=== PATIENT | male | born 1990 | race African-American/Black ===

== ENCOUNTER 2017-04-13 21:28 | Outpatient (CLI) | payer MEDICAID ==
[2017-04-13 19:26] LABS: CALCIUM 9.7 mg/dL (8.5-10.3); CREATININE 1.5 mg/dL (0.6-1.2); POTASSIUM 3.4 mmol/L (3.5-5.0)
== END 2017-04-13 21:29 | disposition home or self-care (01) ==
LOC: LAB.N 21:28
PROVIDERS: ATTEND Internal Medicine Cardiovascular Disease
DX: I42.8 Other cardiomyopathies (principal)
CPT/HCPCS: 36415; 80048; 83880

== ENCOUNTER 2017-05-29 13:43 | Emergency (ER) | payer MEDICAID ==
[2017-05-29] MEDS ORDERED: FUROSEMIDE 20 MG/2 ML VIAL IVP STA (14:37)
[2017-05-29] MEDS ORDERED: ONDANSETRON 4 MG/2 ML VIAL IVP STA ×2 (14:38→15:55)
--- NOTE | 2017-05-29 14:38 | ED Physician Documentation ---
PD HPI DYSPNEA - Stated complaint Stated Complaint: NAUSEA/SOA - Chief complaint Chief Complaint: General - History obtained from History obtained from: Patient - History of Present Illness Timing - onset: Today, Last night Timing - onset during: Rest Timing - duration: Days (1) Timing - details: Abrupt onset (onset of dyspnea, orthopnea, and nausea/ vomiting last night continuing into today. Has had similar with CHF in the past. No diarrhea. No recent URI.), Still present Inciting event(s): No: URI, Immobilization/travel Improved by: Sitting up Worsened by: Exertion, Laying flat Associated symptoms: Bilateral edema (mild at times). No: Fever, Cough, Hemoptysis, Wheezing, Chest pain / discomfort Similar symptoms before: Diagnosis (CHF related to cardiomyopathy.) Recently seen: Not recently seen Review of Systems Constitutional: denies: Fever, Chills Nose: denies: Rhinorrhea / runny nose, Congestion Throat: denies: Sore throat Cardiac: reports: Pedal edema (mild intermittent). denies: Chest pain / pressure, Palpitations, Calf pain Respiratory: denies: Cough GI: reports: Nausea, Vomiting (today, several times). denies: Abdominal Pain, Diarrhea, Bloody / black stool : denies: Dysuria, Frequency Skin: denies: Rash, Lesions Neurologic: reports: Generalized weakness. denies: Focal weakness, Numbness, Near syncope Endocrine: denies: Weight loss, Easy bruising / bleeding Immunocompromised: denies: Immunocompromised PD PAST MEDICAL HISTORY - Past Medical History Cardiovascular: Hypertension, Atrial flutter, Atrial fibrillation, Arrhythmia Respiratory: None Endocrine/Autoimmune: None GI: None : None HEENT: None Musculoskeletal: None Derm: None - Past Surgical History Past Surgical History: Yes Cardiovascular: Pacemaker - Present Medications Home Medications: Ambulatory Orders Medication Instructions Recorded Confirmed Carvedilol 25 mg PO BID 11/29/13 05/29/17 Digoxin 125 mcg PO DAILY 11/29/13 05/29/17 Hydralazine HCl 40 mg PO TID 11/29/13 05/29/17 Isosorbide Dinitrate 20 mg PO TID 11/29/13 05/29/17 Furosemide [Lasix] 20 mg PO DAILY #20 tablet 09/21/15 05/29/17 Promethazine [Phenergan] 25 - 50 mg PO Q6H PRN #10 tab 09/21/15 05/29/17 Rivaroxaban [Xarelto] 5 mg PO DAILY 09/21/15 05/29/17 - Allergies Allergies/Adverse Reactions: Allergies Allergy/AdvReac Type Severity Reaction Status Date / Time No Known Drug Allergies Allergy Verified 11/29/13 13:32 - Social History Does the pt smoke?: No Smoking Status: Never smoker Does the pt drink ETOH?: No Does the pt have substance abuse?: No - Immunizations Immunizations are current?: Yes - POLST Patient has POLST: No PD ED PE NORMAL - Vitals Vital signs reviewed: Yes - General General: Alert and oriented X 3, Well developed/nourished, Other (has some work of breathing on initial assessment. ) - HEENT HEENT: Ears normal, Moist mucous membranes, Pharynx benign - Neck Neck: Supple, no meningeal sign, No adenopathy, No bruit, Other (JVD noted at 45 degrees head of bed. ) - Cardiac Cardiac: RRR, No murmur - Respiratory Respiratory: Other (some fine crackles at bases; no coarse sounds, no wheezes. ) - Abdomen Abdomen: Normal bowel sounds, Soft, Non tender, Non distended - Back Back: No CVA TTP - Derm Derm: Normal color, No rash - Extremities Extremities: No deformity, No tenderness to palpate, Normal ROM s pain, No edema , No calf tenderness / cord - Neuro Neuro: Alert and oriented X 3, No motor deficit, Normal speech Results - Vitals Vitals: Vital Signs - 24 hr 05/29/17 05/29/17 05/29/17 13:55 14:51 16:15 Temperature 35.9 C L Heart Rate 98 93 83 Respiratory 20 16 11 L Rate Blood Pressure 102/69 97/69 106/69 O2 Saturation 99 97 87 L 05/29/17 05/29/17 05/29/17 16:55 17:43 18:00 Temperature Heart Rate 93 81 86 Respiratory 18 16 15 Rate Blood Pressure 118/79 110/78 109/68 O2 Saturation 97 97 98 05/29/17 05/29/17 18:55 19:48 Temperature Heart Rate 82 82 Respiratory 16 Rate Blood Pressure 121/71 112/79 O2 Saturation 98 98 Oxygen O2 Source Room air - Labs Labs: Laboratory Tests 05/29/17 05/29/17 05/29/17 14:25 14:25 14:25 WBC 4.9 RBC 4.73 Hgb 13.1 L Hct 40.1 L MCV 84.8 MCH 27.8 MCHC 32.8 RDW 15.0 Plt Count 235 MPV 7.8 Neut # 3.5 Lymph # 1.2 L [place] # 0.2 Eos # 0.0 Baso # 0.0 Absolute Nucleated RBC 0.00 Nucleated RBCs 0.0 Manual Slide Review Indicated Platelet Estimate NORMAL (130-450,000) Platelet Morphology 1+ LARGE PLATELETS RBC Morph Micro Appear NORMAL APPEARANCE Sodium 136 Potassium 4.3 Chloride 101 Carbon Dioxide 26 Anion Gap 9.0 BUN 28 H Creatinine 1.7 H Estimated GFR (MDRD) 60 L Glucose 96 Calcium 9.8 Magnesium 2.2 Total Bilirubin 1.2 H AST 36 ALT 38 Alkaline Phosphatase 39 L Troponin I < 0.04 B-Natriuretic Peptide Total Protein 7.4 Albumin 4.5 Globulin 2.9 Albumin/Globulin Ratio 1.6 Lipase 23 Last Dose Date Last Dose Time Digoxin 05/29/17 05/29/17 14:25 14:25 WBC RBC Hgb Hct MCV MCH MCHC RDW Plt Count MPV Neut # Lymph # [place] # Eos # Baso # Absolute Nucleated RBC Nucleated RBCs Manual Slide Review Platelet Estimate Platelet Morphology RBC Morph Micro Appear Sodium Potassium Chloride Carbon Dioxide Anion Gap BUN Creatinine Estimated GFR (MDRD) Glucose Calcium Magnesium Total Bilirubin AST ALT Alkaline Phosphatase Troponin I B-Natriuretic Peptide 3483 H Total Protein Albumin Globulin Albumin/Globulin Ratio Lipase Last Dose Date UNK Last Dose Time UNK Digoxin 0.5 PD MEDICAL DECISION MAKING - ED course Complexity details: re-evaluated patient (He did diurese moderately here and is breathing much more comofrtably. His BP is normal to low so did not give nitrates. ), considered differential, d/w patient, d/w wound care center consultant (Cardiology at - he is followed closely there, and though he does not present as fluid overload per se, he still needs diuresis, and also they would want to do ECHO to assess heart function/etc. They would like him transferred to Cardiology. The nausea and vomiting are common signs of CHF/ischemia in younger cardiomyapathy patients. ) Departure - Departure Disposition: 02 Transfer Acute Care Hosp Clinical Impression: Congestive heart failure Qualifiers: Congestive heart failure type: combined Congestive heart failure chronicity: acute on chronic Qualified Code(s): I50.43 - Acute on chronic combined systolic (congestive) and diastolic (congestive) heart failure Cardiomyopathy Qualifiers: Cardiomyopathy type: unspecified Qualified Code(s): I42.9 - Cardiomyopathy, unspecified Dyspnea Qualifiers: Dyspnea type: shortness of breath Qualified Code(s): R06.02 - Shortness of breath Condition: Stable Record reviewed to determine appropriate education?: Yes Discharge Date/Time: 05/29/17 20:00
[2017-05-29] MEDS ORDERED: ONDANSETRON 4 MG/2 ML VIAL ONE ×2 (14:45→16:04)
[2017-05-29] MEDS ORDERED: FUROSEMIDE 20 MG/2 ML VIAL IVP ONE (14:45)
[2017-05-29] MEDS ORDERED: SODIUM CHLORIDE FLUSH 0.9% 10 ML SYRINGE IVP ONE ×2 (14:46→16:55)
[2017-05-29 14:51] LABS: BASOPHILS % (AUTO) 0.3 %; EOSINOPHILS % (AUTO) 0.3 %; HCT - HEMATOCRIT 40.1 % (42.0-52.0); HGB - HEMOGLOBIN 13.1 g/dL (14.0-18.0); LYMPHOCYTES # (AUTO) 1.2 10^3/uL (1.5-3.5); LYMPHOCYTES % (AUTO) 23.7 %; MEAN CORPUSCULAR HEMOGLOBIN 27.8 pg (27.0-31.0); MEAN CORPUSCULAR HGB CONC 32.8 g/dL (32.0-36.0); MEAN CORPUSCULAR VOLUME 84.8 fL (80.0-94.0); MEAN PLATELET VOLUME 7.8 fL (7.4-11.4); MONOCYTES # (AUTO) 0.2 10^3/uL (0.0-1.0); MONOCYTES % (AUTO) 4.7 %; NEUTROPHILS # (AUTO) 3.5 10^3/uL (1.5-6.6); RED BLOOD COUNT 4.73 10^6/uL (4.70-6.10); UNCORRECTED WHITE BLOOD COUNT 4.9 x10^3/uL; WHITE BLOOD COUNT 4.9 x10^3/uL (4.8-10.8)
[2017-05-29 15:00] LABS: ALBUMIN/GLOBULIN RATIO 1.6 (1.0-2.2); BILIRUBIN,TOTAL 1.2 mg/dL (0.2-1.0); CALCIUM 9.8 mg/dL (8.5-10.3); CREATININE 1.7 mg/dL (0.6-1.2); MAGNESIUM 2.2 mg/dL (1.7-2.8); POTASSIUM 4.3 mmol/L (3.5-5.0); TOTAL PROTEIN 7.4 g/dL (6.7-8.2)
[2017-05-29 15:09] LABS: PLATELET ESTIMATE, MANUAL NORMAL (130-450,000) (NORMAL); PLATELET MORPHOLOGY 1+ LARGE PLATELETS (NORMAL)
--- NOTE | 2017-05-29 15:16 | XRAY Preliminary Report ---
Exam: XR Chest 1 View IMPRESSION: 1. Cardiomegaly without pulmonary edema or focal pneumonia. [facility] SITE ID: [id number]
--- NOTE | 2017-05-29 15:19 | XRAY Report ---
EXAM: CHEST RADIOGRAPHY EXAM DATE: 05/29/2017 02:59 PM. CLINICAL HISTORY: Dyspnea; h/o CHF. COMPARISON: 09/21/2015. TECHNIQUE: 1 view. FINDINGS: Lungs/Pleura: No pulmonary edema or pneumonia. Lung volumes appear normal and symmetric. Negative for pneumothorax. Mediastinum: There is cardiomegaly. There is a defibrillator lead overlying the chest and heart. Other: None. IMPRESSION: 1. Cardiomegaly without pulmonary edema or focal pneumonia. [facility] Referring Provider Line: [phone] SITE ID: [id number]
[2017-05-29] MEDS ORDERED: FUROSEMIDE 40 MG/4 ML VIAL IVP STA (16:40)
[2017-05-29] MEDS ORDERED: FUROSEMIDE 40 MG/4 ML VIAL ONE (16:53)
[2017-05-29 19:52] VITALS: BP 112/79
== END 2017-05-29 20:00 | disposition short-term general hospital (02) ==
LOC: ED 13:43
DX: I50.43 Acute on chronic combined systolic (congestive) and diastolic (congestive) heart failure (principal); I42.9 Cardiomyopathy, unspecified; I10 Essential (primary) hypertension; Z95.0 Presence of cardiac pacemaker
CPT/HCPCS: 36415; 71010; 80053; 80162; 83690; 83735; 83880; 84484; 85025; 93005; 96374; 96375; 96376; 99285

== ENCOUNTER 2017-05-29 19:57 | Outpatient (CLI) | payer MEDICAID | END 2017-05-29 19:58 | disposition short-term general hospital (02) | LOC: EMS 19:57 | PROVIDERS: ATTEND Surgery | DX: I50.9 Heart failure, unspecified (principal); I42.9 Cardiomyopathy, unspecified | CPT/HCPCS: A0425; A0426 ==

== ENCOUNTER 2017-06-02 08:40 | Outpatient (CLI) | payer MEDICAID | END 2017-06-02 08:41 | disposition critical access hospital (66) | LOC: EMS 08:40 | PROVIDERS: ATTEND Surgery | DX: R10.9 Unspecified abdominal pain (principal) | CPT/HCPCS: A0425; A0427 ==

== ENCOUNTER 2017-06-02 08:58 | Emergency (ER) | payer MEDICAID ==
[2017-06-02] MEDS ORDERED: SODIUM CHLORIDE FLUSH 0.9% 10 ML SYRINGE IVP ONE (09:12)
[2017-06-02] MEDS ORDERED: MORPHINE 2 MG/ML CARPUJECT IVP STA (09:18)
[2017-06-02] MEDS ORDERED: ONDANSETRON 4 MG/2 ML VIAL IVP STA (09:18)
--- NOTE | 2017-06-02 09:21 | ED Physician Documentation ---
History of Present Illness - Stated complaint Stated Complaint: ABD PX NAUSEA - Chief complaint Chief Complaint: General - Additonal information Additional information: 26 male congential cardiomyopathy has AICD, EF 20%, followed and [facility] to ER with upper abd pain NV no fever no diarrhea no urinary sx no chest or back pain worse with walking no affected by eating no prior abd surgery seen in our ER for same and transferred to [facility] for cardiac work up which pt states was fine and he was given diuretics now pain is back so sent back to the ER again Review of Systems Constitutional: denies: Fever, Chills Cardiac: denies: Chest pain / pressure Respiratory: denies: Dyspnea, Cough GI: reports: Abdominal Pain, Nausea, Vomiting. denies: Diarrhea, Bloody / black stool : denies: Dysuria Musculoskeletal: denies: Neck pain, Back pain Endocrine: reports: Easy bruising / bleeding (xarelto) Immunocompromised: denies: Immunocompromised PD PAST MEDICAL HISTORY - Past Medical History Cardiovascular: Congestive heart failure, Hypertension, Atrial flutter, Atrial fibrillation, Arrhythmia Respiratory: None Endocrine/Autoimmune: None GI: None : None HEENT: None Musculoskeletal: None Derm: None - Past Surgical History Past Surgical History: Yes Cardiovascular: Pacemaker, AICD - Present Medications Home Medications: Ambulatory Orders Medication Instructions Recorded Confirmed Carvedilol 25 mg PO BID 11/29/13 06/02/17 Digoxin 125 mcg PO DAILY 11/29/13 06/02/17 Hydralazine HCl 40 mg PO TID 11/29/13 06/02/17 Isosorbide Dinitrate 20 mg PO TID 11/29/13 06/02/17 Furosemide [Lasix] 20 mg PO DAILY #20 tablet 09/21/15 05/29/17 Rivaroxaban [Xarelto] 5 mg PO DAILY 09/21/15 06/02/17 Sacubitril/Valsartan [Entresto 49 06/02/17 mg-51 mg Tablet] - Allergies Allergies/Adverse Reactions: Allergies Allergy/AdvReac Type Severity Reaction Status Date / Time No Known Drug Allergies Allergy Verified 11/29/13 13:32 - Social History Does the pt smoke?: No Smoking Status: Never smoker Does the pt drink ETOH?: No Does the pt have substance abuse?: No - Immunizations Immunizations are current?: Yes - POLST Patient has POLST: No PD ED PE NORMAL - Vitals Vital signs reviewed: Yes - General General: Alert and oriented X 3 - HEENT HEENT: PERRL - Neck Neck: Supple, no meningeal sign - Cardiac Cardiac: RRR - Respiratory Respiratory: No respiratory distress, Clear bilaterally - Abdomen Abdomen: Normal bowel sounds, Soft, Other (marked TTP upper abd epigastric and RUQ > LUQ, some vol guarding, no pulsatile mass, no lower abd TTP) - Male Male : Deferred (denies scrotal pain or swelling) - Derm Derm: Normal color - Extremities Extremities: No deformity, No tenderness to palpate, No edema - Neuro Neuro: Alert and oriented X 3 Results - Vitals Vitals: Vital Signs - 24 hr 06/02/17 06/02/17 06/02/17 09:02 11:45 12:20 Temperature 36.5 C 36.7 C Heart Rate 102 H 93 97 Respiratory 14 18 Rate Blood Pressure 131/90 H 117/72 115/68 O2 Saturation 99 98 97 06/02/17 12:40 Temperature Heart Rate 97 Respiratory 14 Rate Blood Pressure 126/97 H O2 Saturation 86 L Oxygen O2 Source Room air Oxygen Flow Rate 3 - EKG (time done) 0904 Rate: Rate (enter#) Rhythm: NSR Intervals: Prolonged QT Ischemia: T wave inversion (V4-V2 I) Compare to prior EKG: Changed from prior EKG (TWI not new but prolonged QT is) - Labs Labs: Laboratory Tests 06/02/17 06/02/17 06/02/17 09:50 09:50 09:50 WBC 4.2 L RBC 4.29 L Hgb 12.1 L Hct 36.5 L MCV 84.9 MCH 28.2 MCHC 33.2 RDW 15.4 H Plt Count 211 MPV 7.9 Neut # 3.0 Lymph # 1.0 L [place] # 0.2 Eos # 0.0 Baso # 0.0 Absolute Nucleated RBC 0.01 Nucleated RBCs 0.1 Sodium 138 Potassium 4.5 Chloride 106 Carbon Dioxide 24 Anion Gap 8.0 BUN 27 H Creatinine 1.5 H Estimated GFR (MDRD) 70 L Glucose 117 H Calcium 9.6 Total Bilirubin 0.9 AST 45 H ALT 47 Alkaline Phosphatase 35 L Troponin I < 0.04 Total Protein 7.0 Albumin 4.0 Globulin 3.0 Albumin/Globulin Ratio 1.3 Lipase 19 L Last Dose Date Last Dose Time Digoxin 06/02/17 09:50 WBC RBC Hgb Hct MCV MCH MCHC RDW Plt Count MPV Neut # Lymph # [place] # Eos # Baso # Absolute Nucleated RBC Nucleated RBCs Sodium Potassium Chloride Carbon Dioxide Anion Gap BUN Creatinine Estimated GFR (MDRD) Glucose Calcium Total Bilirubin AST ALT Alkaline Phosphatase Troponin I Total Protein Albumin Globulin Albumin/Globulin Ratio Lipase Last Dose Date 06/02/2017 Last Dose Time UNK Digoxin 0.3 - Rads (name of study) GB sono Radiology: See rad report (acute slava, nl CBD) PD MEDICAL DECISION MAKING - ED course ED course: renal insuff is not new new prolonged QT - avoided acute slava, gave zosyn, given underlying cardiomyopathy and EF 20% not able to have surgery at [facility], will call [facility] to transfer, Dr Villarreal accepts, waiting for a bed at [facility] Departure - Departure Disposition: 02 Transfer Acute Care Hosp Clinical Impression: Acute cholecystitis, Prolonged QT interval Cardiomyopathy Qualifiers: Cardiomyopathy type: unspecified Qualified Code(s): I42.9 - Cardiomyopathy, unspecified Condition: Fair
[2017-06-02] MEDS ORDERED: PROMETHAZINE INJ 12.5 MG in SODIUM CHLORIDE 0.9% 50 ML IV STA (09:38)
[2017-06-02] MEDS ORDERED: PROMETHAZINE 25 MG/1 ML VIAL ONE (09:42)
[2017-06-02] MEDS ORDERED: MORPHINE 2 MG/ML CARPUJECT ONE (09:42)
[2017-06-02 10:03] LABS: BASOPHILS % (AUTO) 0.6 %; EOSINOPHILS % (AUTO) 0.4 %; HCT - HEMATOCRIT 36.5 % (42.0-52.0); HGB - HEMOGLOBIN 12.1 g/dL (14.0-18.0); MEAN CORPUSCULAR HEMOGLOBIN 28.2 pg (27.0-31.0); MEAN CORPUSCULAR HGB CONC 33.2 g/dL (32.0-36.0); MEAN CORPUSCULAR VOLUME 84.9 fL (80.0-94.0); MEAN PLATELET VOLUME 7.9 fL (7.4-11.4); MONOCYTES # (AUTO) 0.2 10^3/uL (0.0-1.0); MONOCYTES % (AUTO) 5.1 %; NEUTROPHILS % (AUTO) 70.9 %; NUCLEATED RED BLOOD CELLS AUTO 0.1 /100WBC; RED BLOOD COUNT 4.29 10^6/uL (4.70-6.10); RED CELL DISTRIBUTION WIDTH 15.4 % (12.0-15.0); UNCORRECTED WHITE BLOOD COUNT 4.2 x10^3/uL; WHITE BLOOD COUNT 4.2 x10^3/uL (4.8-10.8)
[2017-06-02 10:20] LABS: POTASSIUM 4.5 mmol/L (3.5-5.0)
[2017-06-02 10:21] LABS: ALBUMIN/GLOBULIN RATIO 1.3 (1.0-2.2); BILIRUBIN,TOTAL 0.9 mg/dL (0.2-1.0); CALCIUM 9.6 mg/dL (8.5-10.3); CREATININE 1.5 mg/dL (0.6-1.2)
--- NOTE | 2017-06-02 11:34 | Ultrasound Report ---
RIGHT UPPER QUADRANT ULTRASOUND: 06/02/2017 CLINICAL INDICATION: Pain. TECHNIQUE: Real-time scanning was performed with provider relations representative static images obtained. FINDINGS: The liver measures 19.1 cm. Hepatic echotexture is normal. No intrahepatic biliary dilat ation is seen. The common bile duct measures 5 mm. The gallbladder demonstrates wall thickening and wall edema, with a calculus of the neck, compatible with acute calculus cholecystitis. The right ki dney measures 9.2 cm, and demonstrates no hydronephrosis. The abdominal aorta is normal in caliber. IMPRESSION: ACUTE CALCULUS CHOLECYSTITIS. NO EVIDENCE OF BILIARY OBSTRUCTION. JOB #: [id number] EXT JOB #:[id number]
[2017-06-02] MEDS ORDERED: PIPERACILLIN/TAZOBACTAM 3.375 GM in SODIUM CHLORIDE 0.9% MINIBAG 100 ML IV STA (11:42)
[2017-06-02] MEDS ORDERED: HYDROmorphone 1 MG/ML SYRINGE IVP STA (12:12)
[2017-06-02] MEDS ORDERED: HYDROmorphone 1 MG/ML SYRINGE ONE (12:17)
[2017-06-02] MEDS ORDERED: hydrALAZINE 10 MG TABLET PO STA (15:48)
[2017-06-02] MEDS ORDERED: hydrALAZINE 10 MG TABLET ONE (16:50)
[2017-06-02 17:15] VITALS: BP 108/86
== END 2017-06-02 17:10 | disposition short-term general hospital (02) ==
LOC: EDUNIT# → ED 08:58
DX: K81.9 Cholecystitis, unspecified (principal); I45.81 Long QT syndrome; I42.9 Cardiomyopathy, unspecified; I10 Essential (primary) hypertension
CPT/HCPCS: 36415; 76705; 80053; 80162; 83690; 84484; 85025; 93005; 96365; 96375; 99284; 99285; J1170; J7040

== ENCOUNTER 2017-07-02 13:16 | Outpatient (CLI) | payer MEDICAID ==
[2017-07-02 19:46] LABS: CALCIUM 9.8 mg/dL (8.5-10.3); CREATININE 1.3 mg/dL (0.6-1.2); POTASSIUM 4.3 mmol/L (3.5-5.0)
== END 2017-07-02 13:17 | disposition home or self-care (01) ==
LOC: LAB.N 13:16
PROVIDERS: ATTEND Internal Medicine Cardiovascular Disease
DX: I42.8 Other cardiomyopathies (principal)
CPT/HCPCS: 36415; 80048; 83880

== ENCOUNTER → 2017-07-27 | Outpatient (CLI) | payer MEDICAID ==
[2017-07-29 07:56] LABS: B. PARAPERTUSSIS DNA NOT DETECTED; B. PERTUSSIS DNA NOT DETECTED
== END ==
LOC: LAB.R 08:00
PROVIDERS: ATTEND Nurse Practitioner Gerontology
DX: R05 Cough (principal)
CPT/HCPCS: 87801

== ENCOUNTER 2017-12-28 08:00 | Outpatient (CLI) | payer MEDICAID ==
[2017-12-28 19:00] LABS: PT - PROTHROMBIN TIME 47.5 secs (9.9-12.6)
[2017-12-28 19:06] LABS: INR 4.5 (0.8-1.2)
== END 2017-12-28 08:01 | disposition home or self-care (01) ==
LOC: LAB.N 08:00
PROVIDERS: ATTEND Pharmacist Pharmacotherapy
DX: Z79.01 Long term (current) use of anticoagulants (principal)
CPT/HCPCS: 36415; 85610

== ENCOUNTER 2018-01-01 08:00 | Outpatient (CLI) | payer MEDICAID ==
[2018-01-01 18:34] LABS: INR 3.4 (0.8-1.2); PT - PROTHROMBIN TIME 36.8 secs (9.9-12.6)
== END 2018-01-01 08:01 | disposition home or self-care (01) ==
LOC: LAB.N 08:00
PROVIDERS: ATTEND Nurse Practitioner
DX: Z79.01 Long term (current) use of anticoagulants (principal)
CPT/HCPCS: 36415; 85610

== ENCOUNTER 2018-01-04 13:03 | Outpatient (CLI) | payer MEDICAID ==
[2018-01-04 19:26] LABS: INR 3.3 (0.8-1.2); PT - PROTHROMBIN TIME 35.5 secs (9.9-12.6)
== END 2018-01-04 13:04 | disposition home or self-care (01) ==
LOC: LAB.N 13:03
PROVIDERS: ATTEND Nurse Practitioner
DX: Z79.01 Long term (current) use of anticoagulants (principal)
CPT/HCPCS: 36415; 85610

== ENCOUNTER 2018-01-05 06:46 | Outpatient (CLI) | payer MEDICAID | END 2018-01-05 06:47 | disposition EMS.NT | LOC: EMS 06:46 | PROVIDERS: ATTEND Surgery | DX: R10.9 Unspecified abdominal pain (principal) ==

== ENCOUNTER 2018-01-11 23:49 | Outpatient (CLI) | payer MEDICAID ==
[2018-01-11 19:02] LABS: INR 2.4 (0.8-1.2); PT - PROTHROMBIN TIME 26.5 secs (9.9-12.6)
== END 2018-01-11 23:50 | disposition home or self-care (01) ==
LOC: LAB.N 23:49
PROVIDERS: ATTEND Nurse Practitioner
DX: Z79.01 Long term (current) use of anticoagulants (principal)
CPT/HCPCS: 36415; 85610

== ENCOUNTER 2018-01-22 08:00 | Outpatient (CLI) | payer MEDICAID ==
[2018-01-22 19:08] LABS: INR 3.6 (0.8-1.2); PT - PROTHROMBIN TIME 39.1 secs (9.9-12.6)
== END 2018-01-22 08:01 | disposition home or self-care (01) ==
LOC: LAB.N 08:00
PROVIDERS: ATTEND Nurse Practitioner
DX: Z79.01 Long term (current) use of anticoagulants (principal)
CPT/HCPCS: 36415; 85610

== ENCOUNTER 2018-02-01 08:00 | Outpatient (CLI) | payer MEDICAID ==
[2018-02-01 19:04] LABS: INR 2.9 (0.8-1.2); PT - PROTHROMBIN TIME 31.8 secs (9.9-12.6)
== END 2018-02-01 23:59 ==
LOC: LAB.N 08:00
PROVIDERS: ATTEND Nurse Practitioner
DX: Z79.01 Long term (current) use of anticoagulants (principal)
CPT/HCPCS: 36415; 85610

== ENCOUNTER 2018-02-19 08:00 | Outpatient (CLI) | payer MEDICAID ==
[2018-02-19 19:26] LABS: INR 1.9 (0.8-1.2); PT - PROTHROMBIN TIME 21.1 secs (9.9-12.6)
== END 2018-02-19 08:01 | disposition home or self-care (01) ==
LOC: LAB.N 08:00
PROVIDERS: ATTEND Nurse Practitioner
DX: Z79.01 Long term (current) use of anticoagulants (principal)
CPT/HCPCS: 36415; 85610

== ENCOUNTER 2018-02-22 13:51 | Outpatient (CLI) | payer MEDICAID ==
[2018-02-22 18:36] LABS: INR 2.2 (0.8-1.2); PT - PROTHROMBIN TIME 23.8 secs (9.9-12.6)
== END 2018-02-22 13:52 | disposition home or self-care (01) ==
LOC: LAB.N 13:51
PROVIDERS: ATTEND Nurse Practitioner
DX: Z79.01 Long term (current) use of anticoagulants (principal)
CPT/HCPCS: 36415; 85610

== ENCOUNTER 2018-02-26 14:02 | Outpatient (CLI) | payer MEDICAID ==
[2018-02-26 18:57] LABS: INR 2.5 (0.8-1.2); PT - PROTHROMBIN TIME 27.2 secs (9.9-12.6)
== END 2018-02-26 14:03 | disposition home or self-care (01) ==
LOC: LAB.N 14:02
PROVIDERS: ATTEND Nurse Practitioner
DX: Z79.01 Long term (current) use of anticoagulants (principal)
CPT/HCPCS: 36415; 85610

== ENCOUNTER 2018-03-15 13:56 | Outpatient (CLI) | payer MEDICAID ==
[2018-03-15 19:09] LABS: INR 3.9 (0.8-1.2); PT - PROTHROMBIN TIME 42.3 secs (9.9-12.6)
== END 2018-03-15 13:57 | disposition home or self-care (01) ==
LOC: LAB.N 13:56
PROVIDERS: ATTEND Nurse Practitioner
DX: Z79.01 Long term (current) use of anticoagulants (principal)
CPT/HCPCS: 36415; 85610

== ENCOUNTER 2018-03-22 14:07 | Outpatient (CLI) | payer MEDICAID ==
[2018-03-22 19:21] LABS: INR 2.5 (0.8-1.2); PT - PROTHROMBIN TIME 27.2 secs (9.9-12.6)
== END 2018-03-22 14:08 | disposition home or self-care (01) ==
LOC: LAB.N 14:07
PROVIDERS: ATTEND Nurse Practitioner
DX: Z79.01 Long term (current) use of anticoagulants (principal)
CPT/HCPCS: 36415; 85610

== ENCOUNTER 2018-04-02 14:41 | Outpatient (CLI) | payer MEDICAID ==
[2018-04-02 19:24] LABS: INR 2.6 (0.8-1.2); PT - PROTHROMBIN TIME 28.1 secs (9.9-12.6)
== END 2018-04-02 14:42 | disposition home or self-care (01) ==
LOC: LAB.N 14:41
PROVIDERS: ATTEND Nurse Practitioner
DX: Z79.01 Long term (current) use of anticoagulants (principal)
CPT/HCPCS: 36415; 85610

== ENCOUNTER 2018-04-13 14:30 | Outpatient (CLI) | payer MEDICAID ==
[2018-04-13 19:03] LABS: INR 2.4 (0.8-1.2); PT - PROTHROMBIN TIME 26.7 secs (9.9-12.6)
== END 2018-04-13 14:31 | disposition home or self-care (01) ==
LOC: LAB.N 14:30
PROVIDERS: ATTEND Nurse Practitioner
DX: Z79.01 Long term (current) use of anticoagulants (principal)
CPT/HCPCS: 36415; 85610

== ENCOUNTER 2018-05-10 14:22 | Outpatient (CLI) | payer MEDICAID ==
[2018-05-10 19:23] LABS: INR 2.4 (0.8-1.2); PT - PROTHROMBIN TIME 26.7 secs (9.9-12.6)
== END 2018-05-10 14:23 | disposition home or self-care (01) ==
LOC: LAB.N 14:22
PROVIDERS: ATTEND Nurse Practitioner
DX: Z79.01 Long term (current) use of anticoagulants (principal)
CPT/HCPCS: 36415; 85610

== ENCOUNTER 2018-05-26 14:19 | Outpatient (CLI) | payer MEDICAID ==
[2018-05-26 18:52] LABS: PT - PROTHROMBIN TIME 32.7 secs (9.9-12.6)
== END 2018-05-26 14:20 | disposition home or self-care (01) ==
LOC: LAB.N 14:19
PROVIDERS: ATTEND Nurse Practitioner
DX: Z79.01 Long term (current) use of anticoagulants (principal)
CPT/HCPCS: 36415; 85610

== ENCOUNTER 2018-07-21 13:42 | Outpatient (CLI) | payer MEDICAID ==
[2018-07-21 14:05] LABS: CALCIUM 10.3 mg/dL (8.5-10.3); CREATININE 1.3 mg/dL (0.6-1.2)
== END 2018-07-21 13:43 | disposition home or self-care (01) ==
LOC: LAB 13:42
PROVIDERS: ATTEND Nurse Practitioner Adult Health
DX: Z94.1 Heart transplant status (principal)
CPT/HCPCS: 36415; 80048; 80197

== ENCOUNTER 2018-09-17 08:00 | Outpatient (CLI) | payer MEDICAID ==
[2018-09-17 19:18] LABS: BASOPHILS % (AUTO) 0.4 %; EOSINOPHILS % (AUTO) 0.2 %; MEAN CORPUSCULAR HEMOGLOBIN 29.9 pg (27.0-31.0); MEAN CORPUSCULAR VOLUME 90.7 fL (80.0-94.0); MEAN PLATELET VOLUME 8.1 fL (7.4-11.4); MONOCYTES % (AUTO) 6.1 %; NEUTROPHILS % (AUTO) 88.3 %; PLT - PLATELET COUNT 223 10^3/uL (130-450); RED BLOOD COUNT 4.34 10^6/uL (4.70-6.10); RED CELL DISTRIBUTION WIDTH 15.2 % (12.0-15.0); WHITE BLOOD COUNT 4.1 x10^3/uL (4.8-10.8)
[2018-09-17 19:24] LABS: ABNORMAL LYMPHS % (MANUAL) 0 %
[2018-09-17 19:38] LABS: BAND NEUTROPHILS % (MANUAL) 7 %; DIFFERENTIAL COMMENT MANUAL DIFFERENTIAL; LYMPHOCYTES # (MANUAL) 0.3 10^3/uL (1.5-3.5); LYMPHOCYTES % (MANUAL) 7 %; MONOCYTES # (MANUAL) 0.2 10^3/uL (0.0-1.0); NEUTROPHILS # (MANUAL) 3.6 10^3/uL (1.5-6.6); NEUTROPHILS % (MANUAL) 81 %; PLATELET ESTIMATE, MANUAL NORMAL (130-450,000) (NORMAL); PLATELET MORPHOLOGY NORMAL APPEARANCE (NORMAL); RBC MORPHOLOGY (MULTIPLE) 1+ ANISOCYTOSIS (NORMAL)
[2018-09-17 19:44] LABS: ALBUMIN 4.9 g/dL (3.2-5.5); ALBUMIN/GLOBULIN RATIO 1.5 (1.0-2.2); BILIRUBIN,TOTAL 0.5 mg/dL (0.2-1.0); CALCIUM 10.8 mg/dL (8.5-10.3); CREATININE 1.5 mg/dL (0.6-1.2); MAGNESIUM 1.3 mg/dL (1.7-2.8); TOTAL PROTEIN 8.2 g/dL (6.7-8.2)
== END 2018-09-17 23:59 ==
LOC: LAB.N 08:00
PROVIDERS: ATTEND Nurse Practitioner Adult Health
DX: Z94.1 Heart transplant status (principal)
CPT/HCPCS: 36415; 80053; 80197; 83735; 85025

== ENCOUNTER 2018-10-19 20:38 | Outpatient (CLI) | payer MEDICAID | END 2018-10-19 20:39 | disposition critical access hospital (66) | LOC: EMS 20:38 | PROVIDERS: ATTEND Surgery | DX: M25.522 Pain in left elbow (principal); M25.642 Stiffness of left hand, not elsewhere classified; Z94.1 Heart transplant status | CPT/HCPCS: A0425; A0429; A0999 ==

== ENCOUNTER 2018-10-19 20:55 | Emergency (ER) | payer MEDICAID ==
--- NOTE | 2018-10-19 21:20 | ED Physician Documentation ---
History of Present Illness - Stated complaint Stated Complaint: LEFT ELBOW PAIN - Chief complaint Chief Complaint: Ext Problem - History obtained from History obtained from: Patient - History of Present Illness Timing: Today - Additonal information Additional information: 28-year-old male who has had heart transplant done in May of this year has developed acute pain in his left elbow. This started this morning and is similar to what is had previously with acute gout. He is having gout in that left elbow. This evening he is unable to move his arm at all without severe pain. He states that the rest of his constitution is well and he is taking his medications and has not felt ill. Review of Systems Constitutional: denies: Fever, Chills, Myalgias Eyes: denies: Decreased vision Ears: denies: Ear pain Nose: denies: Rhinorrhea / runny nose, Congestion Throat: denies: Sore throat Cardiac: denies: Chest pain / pressure, Palpitations Respiratory: denies: Dyspnea, Cough GI: denies: Abdominal Pain, Nausea, Vomiting, Constipation, Diarrhea : denies: Dysuria Skin: denies: Rash Musculoskeletal: reports: Extremity pain, Joint pain, Joint swelling. denies: Neck pain, Back pain Neurologic: denies: Generalized weakness, Focal weakness, Numbness PD PAST MEDICAL HISTORY - Past Medical History Cardiovascular: Congestive heart failure, Hypertension, Atrial flutter, Atrial fibrillation, Arrhythmia Respiratory: None Endocrine/Autoimmune: None GI: None : None HEENT: None Musculoskeletal: None Derm: None - Past Surgical History Past Surgical History: Yes Cardiovascular: Pacemaker, AICD - Present Medications Home Medications: Ambulatory Orders Medication Instructions Recorded Confirmed Carvedilol 25 mg PO BID 11/29/13 06/02/17 Digoxin 125 mcg PO DAILY 11/29/13 06/02/17 Hydralazine HCl 40 mg PO TID 11/29/13 06/02/17 Isosorbide Dinitrate 20 mg PO TID 11/29/13 06/02/17 Furosemide [Lasix] 20 mg PO DAILY #20 tablet 09/21/15 05/29/17 Rivaroxaban [Xarelto] 5 mg PO DAILY 09/21/15 06/02/17 Sacubitril/Valsartan [Entresto 49 06/02/17 mg-51 mg Tablet] Oxycodone HCl/Acetaminophen 1 - 2 each PO Q6H PRN #14 tablet 10/19/18 [Percocet 5-325 mg Tablet] - Allergies Allergies/Adverse Reactions: Allergies Allergy/AdvReac Type Severity Reaction Status Date / Time No Known Drug Allergies Allergy Verified 10/19/18 21:00 - Social History Does the pt smoke?: No Smoking Status: Never smoker Does the pt drink ETOH?: No Does the pt have substance abuse?: No - Immunizations Immunizations are current?: Yes - POLST Patient has POLST: No PD ED PE NORMAL - Vitals Vital signs reviewed: Yes (tachy and hypertensive ) - General General: Alert and oriented X 3, Well developed/nourished - HEENT HEENT: Atraumatic, PERRL, EOMI - Neck Neck: Supple, no meningeal sign, No bony TTP - Cardiac Cardiac: RRR, No murmur - Respiratory Respiratory: No respiratory distress, Clear bilaterally - Abdomen Abdomen: Soft, Non tender - Back Back: No CVA TTP, No spinal TTP - Derm Derm: Normal color, Warm and dry, No rash - Extremities Extremities: Other (There are multiple scars to the left elbow and there is mild swelling over the olecrenon that is tender and not discolored. Small movements cause signifcant pain consistent with the gout. 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, No motor deficit, No sensory deficit, Normal speech Eye Opening: Spontaneous Motor: Obeys Commands Verbal: Oriented GCS Score: 15 - Psych Psych: Normal mood, Normal affect Results - Vitals Vitals: Vital Signs - 24 hr 10/19/18 10/19/18 20:55 21:34 Temperature 37.1 C Heart Rate 110 H 105 H Respiratory 16 16 Rate Blood Pressure 140/106 H 142/96 H O2 Saturation 99 100 Oxygen O2 Source Room air - Labs Labs: Laboratory Tests 10/19/18 10/19/18 10/19/18 21:24 21:24 21:24 WBC 6.1 RBC 3.69 L Hgb 11.1 L Hct 33.7 L MCV 91.3 MCH 30.1 MCHC 33.0 RDW 14.2 Plt Count 204 MPV 7.2 L Neut # (Auto) 5.0 Lymph # (Auto) 0.[address] [place] # (Auto) 0.7 Eos # (Auto) 0.0 Baso # (Auto) 0.0 Absolute Nucleated RBC 0.00 Nucleated RBC % 0.0 Sodium 136 Potassium 4.1 Chloride 104 Carbon Dioxide 24 Anion Gap 8.0 BUN 35 H Creatinine 1.7 H Estimated GFR (MDRD) 59 L Glucose 221 H Uric Acid Calcium 9.7 Total Bilirubin 0.3 AST 20 ALT 17 Alkaline Phosphatase 44 Troponin I < 0.04 Total Protein 7.8 Albumin 4.6 Globulin 3.2 Albumin/Globulin Ratio 1.4 Lipase 21 L 10/19/18 21:24 WBC RBC Hgb Hct MCV MCH MCHC RDW Plt Count MPV Neut # (Auto) Lymph # (Auto) 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 He has had this previously. Here in the emergency department he is administered dexamethasone 10 mg orally and oxycodone 5 mg orally. He has a history of renal insufficiency and his electrolytes and uric acid are checked. Departure - Departure Disposition: 01 Home, Self Care Clinical Impression: Gout attack Qualifiers: Gout site: elbow Gout etiology: unspecified cause Laterality: left Qualified Code(s): M10.9 - Gout, unspecified Condition: Stable Instructions: Gout Attack Tx, ED Arthritis Gout Follow-Up: Pat Groves ARNP [Primary Care Provider] - Prescriptions: Oxycodone HCl/Acetaminophen [Percocet 5-325 mg Tablet] 1 - 2 each PO Q6H PRN #14 tablet PRN Reason: pain
[2018-10-19] MEDS ORDERED: oxyCODONE 5 MG TABLET PO STA (21:23)
[2018-10-19] MEDS ORDERED: DEXAMETHASONE 10 MG/ML VIAL PO STA (21:23)
[2018-10-19 21:28] LABS: BASOPHILS % (AUTO) 0.6 %; EOSINOPHILS % (AUTO) 0.4 %; HGB - HEMOGLOBIN 11.1 g/dL (14.0-18.0); LYMPHOCYTES # (AUTO) 0.4 10^3/uL (1.5-3.5); LYMPHOCYTES % (AUTO) 6.2 %; MEAN CORPUSCULAR HEMOGLOBIN 30.1 pg (27.0-31.0); MEAN CORPUSCULAR VOLUME 91.3 fL (80.0-94.0); MEAN PLATELET VOLUME 7.2 fL (7.4-11.4); MONOCYTES # (AUTO) 0.7 10^3/uL (0.0-1.0); MONOCYTES % (AUTO) 10.9 %; NEUTROPHILS % (AUTO) 81.9 %; PLT - PLATELET COUNT 204 10^3/uL (130-450); RED BLOOD COUNT 3.69 10^6/uL (4.70-6.10); RED CELL DISTRIBUTION WIDTH 14.2 % (12.0-15.0); WHITE BLOOD COUNT 6.1 x10^3/uL (4.8-10.8)
[2018-10-19] MEDS ORDERED: CHERRY SYRUP 10 ML UDC PO ONE (21:32)
[2018-10-19 21:45] LABS: ALBUMIN 4.6 g/dL (3.2-5.5); ALBUMIN/GLOBULIN RATIO 1.4 (1.0-2.2); BILIRUBIN,TOTAL 0.3 mg/dL (0.2-1.0); CALCIUM 9.7 mg/dL (8.5-10.3); CREATININE 1.7 mg/dL (0.6-1.2); TOTAL PROTEIN 7.8 g/dL (6.7-8.2)
[2018-10-19] MEDS ORDERED: KETOROLAC 60 MG/2 ML VIAL IM STA (22:06)
[2018-10-19] MEDS ORDERED: oxyCODONE/ACET 5/325 Prepack 4 PO STA (22:30)
[2018-10-19 23:01] VITALS: BP 134/87
== END 2018-10-19 23:01 | disposition home or self-care (01) ==
LOC: EDUNIT# → ED 20:55
DX: M10.9 Gout, unspecified (principal); Z95.810 Presence of automatic (implantable) cardiac defibrillator; Z94.1 Heart transplant status; I11.0 Hypertensive heart disease with heart failure; I50.9 Heart failure, unspecified; N28.9 Disorder of kidney and ureter, unspecified
CPT/HCPCS: 36415; 80053; 83690; 84484; 84550; 85025; 96372; 99283; A9270

== ENCOUNTER 2018-11-02 08:00 | Outpatient (CLI) | payer MEDICAID ==
[2018-11-02 20:00] LABS: CREATININE 1.5 mg/dL (0.6-1.2)
== END 2018-11-02 23:59 | disposition home or self-care (01) ==
LOC: LAB.N 08:00
PROVIDERS: ATTEND Internal Medicine Cardiovascular Disease
DX: Z94.1 Heart transplant status (principal)
CPT/HCPCS: 36415; 80048; 80197

== ENCOUNTER 2018-12-06 21:40 | Emergency (ER) | payer MEDICAID ==
[2018-12-06] MEDS ORDERED: SODIUM CHLORIDE 0.9% 1,000 ML IV ONE (21:57)
[2018-12-07 00:40] LABS: ALBUMIN 4.6 g/dL (3.2-5.5); ALBUMIN/GLOBULIN RATIO 1.4 (1.0-2.2); BILIRUBIN,TOTAL 0.9 mg/dL (0.2-1.0); CALCIUM 10.9 mg/dL (8.5-10.3); CREATININE 1.4 mg/dL (0.6-1.2)
[2018-12-07 01:15] LABS: BASOPHILS % (AUTO) 2.4 %; EOSINOPHILS % (AUTO) 0.8 %; HGB - HEMOGLOBIN 12.8 g/dL (14.0-18.0); LYMPHOCYTES % (AUTO) 24.7 %; MEAN CORPUSCULAR HEMOGLOBIN 30.4 pg (27.0-31.0); MEAN CORPUSCULAR HGB CONC 35.7 g/dL (32.0-36.0); MEAN CORPUSCULAR VOLUME 85.2 fL (80.0-94.0); MEAN PLATELET VOLUME 7.9 fL (7.4-11.4); MONOCYTES % (AUTO) 14.2 %; NEUTROPHILS % (AUTO) 57.9 %; PLT - PLATELET COUNT 353 10^3/uL (130-450); RED BLOOD COUNT 4.19 10^6/uL (4.70-6.10); RED CELL DISTRIBUTION WIDTH 13.3 % (12.0-15.0); WHITE BLOOD COUNT 2.1 x10^3/uL (4.8-10.8)
[2018-12-07 01:34] LABS: VBG BASE EXCESS -2.1 mmol/L (-2 - +2); VBG PCO2 45.7 mmHg (41-51); VBG PH 7.336 (7.31-7.41); VBG PO2 41.2 mmHg (25-47); VBG TOTAL CO2 25.3 mmol/L (24-29)
[2018-12-07 01:44] LABS: ABNORMAL LYMPHS % (MANUAL) 0 %; BAND NEUTROPHILS % (MANUAL) 0 %; BASOPHILS % (MANUAL) 1 %; LYMPHOCYTES # (MANUAL) 0.5 10^3/uL (1.5-3.5); LYMPHOCYTES % (MANUAL) 25 %; MONOCYTES # (MANUAL) 0.2 10^3/uL (0.0-1.0); NEUTROPHILS # (MANUAL) 1.3 10^3/uL (1.5-6.6); NEUTROPHILS % (MANUAL) 62 %
[2018-12-07 01:45] LABS: PLATELET ESTIMATE, MANUAL NORMAL (130-450,000) (NORMAL); RBC MORPHOLOGY (MULTIPLE) NORMAL APPEARANCE (NORMAL)
[2018-12-07] MEDS ORDERED: INSULIN REGULAR HUMAN 100 UNIT/1 ML 10 ML MDV ONE (01:47)
[2018-12-07] MEDS ORDERED: INSULIN REGULAR HUMAN 100 UNIT/1 ML 10 ML MDV SUBQ ONE (01:47)
[2018-12-07 02:05] LABS: BILIRUBIN,URINE NEGATIVE (NEGATIVE); GLUCOSE, URINE (UA) >=1000 mg/dL (NEGATIVE); KETONES,URINE (UA) 15 mg/dL (NEGATIVE); LEUKOCYTE ESTERASE, URINE NEGATIVE (NEGATIVE); NITRITE,URINE NEGATIVE (NEGATIVE); OCCULT BLOOD,URINE NEGATIVE (NEGATIVE); PROTEIN,URINE NEGATIVE (NEGATIVE); UROBILINOGEN,URINE 0.2 (NORMAL) E.U./dL (NORMAL)
[2018-12-07 02:09] LABS: CLARITY,URINE CLEAR (CLEAR)
[2018-12-07 02:24] VITALS: BP 142/87
[2018-12-07 02:45] LABS: BACTERIA,URINE None Seen /HPF (None Seen); RBC,URINE None Seen /HPF (0-5); SQUAMOUS EPITHELIAL CELL,UR NONE SEEN (<= Few)
--- NOTE | 2018-12-07 05:09 | ED Physician Documentation ---
History of Present Illness - Stated complaint Stated Complaint: BS/BP ISSUE/POST HEART TRANSPLAT - Chief complaint Chief Complaint: Cardiac - History obtained from History obtained from: Patient - History of Present Illness Timing: How many days ago (2) Pain level max: 0 Pain level now: 0 Severity Comments: mild Quality: dull Radiates to: none Improved by: Nothing Worsened by: nothing Associated symptoms: polyuria, polydypsia Review of Systems Constitutional: reports: Reviewed and negative Eyes: reports: Reviewed and negative Ears: reports: Reviewed and negative Nose: reports: Reviewed and negative Throat: reports: Reviewed and negative Cardiac: reports: Reviewed and negative Respiratory: reports: Reviewed and negative GI: reports: Reviewed and negative : reports: Other (polyuria/polydypsia) Skin: reports: Reviewed and negative Musculoskeletal: reports: Reviewed and negative Neurologic: reports: Reviewed and negative Psychiatric: reports: Reviewed and negative Endocrine: reports: Reviewed and negative Immunocompromised: reports: Reviewed and negative PD PAST MEDICAL HISTORY - Past Medical History Past Medical History: Yes Cardiovascular: Congestive heart failure, Hypertension, Atrial flutter, Atrial fibrillation, Arrhythmia Respiratory: None Endocrine/Autoimmune: None GI: None : None HEENT: None Musculoskeletal: None Derm: None - Past Surgical History Past Surgical History: Yes Cardiovascular: Pacemaker, AICD, Other - Present Medications Home Medications: Ambulatory Orders Medication Instructions Recorded Confirmed Carvedilol 25 mg PO BID 11/29/13 06/02/17 Digoxin 125 mcg PO DAILY 11/29/13 06/02/17 Hydralazine HCl 40 mg PO TID 11/29/13 06/02/17 Isosorbide Dinitrate 20 mg PO TID 11/29/13 06/02/17 Furosemide [Lasix] 20 mg PO DAILY #20 tablet 09/21/15 05/29/17 Rivaroxaban [Xarelto] 5 mg PO DAILY 09/21/15 06/02/17 Sacubitril/Valsartan [Entresto 49 06/02/17 mg-51 mg Tablet] Oxycodone HCl/Acetaminophen 1 - 2 each PO Q6H PRN #14 tablet 10/19/18 [Percocet 5-325 mg Tablet] - Allergies Allergies/Adverse Reactions: Allergies Allergy/AdvReac Type Severity Reaction Status Date / Time No Known Drug Allergies Allergy Verified 12/06/18 21:53 - Social History Does the pt smoke?: No Smoking Status: Never smoker Does the pt drink ETOH?: No Does the pt have substance abuse?: No - Immunizations Immunizations are current?: Yes - POLST Patient has POLST: No PD ED PE NORMAL - Vitals Vital signs reviewed: Yes - General General: Alert and oriented X 3, No acute distress - HEENT HEENT: PERRL - Neck Neck: Supple, no meningeal sign - Cardiac Cardiac: RRR, No murmur - Respiratory Respiratory: Clear bilaterally - Abdomen Abdomen: Normal bowel sounds, Soft, Non tender, Non distended - Derm Derm: Warm and dry - Extremities Extremities: No deformity - Neuro Neuro: Alert and oriented X 3 - Psych Psych: Normal mood, Normal affect Results - Vitals Vitals: Vital Signs - 24 hr 12/06/18 12/06/18 12/06/18 21:43 21:53 23:53 Temperature 36.4 C L Heart Rate 111 H 107 H 98 Respiratory 26 H 15 16 Rate Blood Pressure 142/72 H 142/77 H 114/71 O2 Saturation 98 98 100 12/07/18 12/07/18 01:00 02:23 Temperature Heart Rate 98 101 H Respiratory 17 23 Rate Blood Pressure 114/71 142/87 H O2 Saturation 99 96 Oxygen O2 Source Room air - EKG (time done) 2152 Rate: Rate (enter#) (107), Tachy Rhythm: Sinus tachycardia [place]: Normal Intervals: Normal NH, Prolonged QT, QRS normal QRS: Normal Ischemia: Normal ST segments. No: T wave inversion - Labs Labs: Laboratory Tests 12/06/18 12/06/18 12/06/18 22:06 22:06 22:06 WBC 2.1 L RBC 4.19 L Hgb 12.8 L Hct 35.7 L MCV 85.2 MCH 30.4 MCHC 35.7 RDW 13.3 Plt Count 353 MPV 7.9 Neut # (Auto) Not Reportable Lymph # (Auto) Not Reportable Nicholas # (Auto) Not Reportable Eos # (Auto) Not Reportable Baso # (Auto) Not Reportable Absolute Nucleated RBC Not Reportable Total Counted 100 Band Neuts % (Manual) 0 Abnorm Lymph % (Manual) 0 Nucleated RBC % Not Reportable Neutrophils # (Manual) 1.3 L Lymphocytes # (Manual) 0.5 L Monocytes # (Manual) 0.2 Eosinophils # (Manual) 0.0 Basophils # (Manual) 0.0 Platelet Estimate NORMAL (130-450,000) RBC Morph Micro Appear NORMAL APPEARANCE VBG pH VBG pCO2 VBG pO2 VBG HCO3 VBG Total CO2 VBG O2 Saturation VBG Base Excess Sodium 124 L Potassium 4.3 Chloride 89 L Carbon Dioxide 23 Anion Gap 12.0 BUN 35 H Creatinine 1.4 H Estimated GFR (MDRD) 74 L Glucose 523 H* POC Whole Bld Glucose Lactic Acid Calcium 10.9 H Total Bilirubin 0.9 AST 28 ALT 34 Alkaline Phosphatase 60 Troponin I < 0.04 Total Protein 8.0 Albumin 4.6 Globulin 3.4 Albumin/Globulin Ratio 1.4 Lipase 25 Urine Color Urine Clarity Urine pH Ur Specific [place] Urine Protein Urine Glucose (UA) Urine Ketones Urine Occult Blood Urine Nitrite Urine Bilirubin Urine Urobilinogen Ur Leukocyte Esterase Urine RBC Urine WBC Ur Squamous Epith Cells Urine Bacteria Urine Culture Comments 12/06/18 12/06/18 12/07/18 22:06 22:15 01:30 WBC RBC Hgb Hct MCV MCH MCHC RDW Plt Count MPV Neut # (Auto) Lymph # (Auto) Nicholas # (Auto) Eos # (Auto) Baso # (Auto) Absolute Nucleated RBC Total Counted Band Neuts % (Manual) Abnorm Lymph % (Manual) Nucleated RBC % Neutrophils # (Manual) Lymphocytes # (Manual) Monocytes # (Manual) Eosinophils # (Manual) Basophils # (Manual) Platelet Estimate RBC Morph Micro Appear VBG pH 7.336 VBG pCO2 45.7 VBG pO2 41.2 VBG HCO3 23.9 VBG Total CO2 25.3 VBG O2 Saturation 72.3 VBG Base Excess -2.1 L Sodium Potassium Chloride Carbon Dioxide Anion Gap BUN Creatinine Estimated GFR (MDRD) Glucose POC Whole Bld Glucose Lactic Acid 1.0 Calcium Total Bilirubin AST ALT Alkaline Phosphatase Troponin I Total Protein Albumin Globulin Albumin/Globulin Ratio Lipase Urine Color YELLOW Urine Clarity CLEAR Urine pH 6.0 Ur Specific [place] <=1.005 Urine Protein NEGATIVE Urine Glucose (UA) >=1000 H Urine Ketones 15 H Urine Occult Blood NEGATIVE Urine Nitrite NEGATIVE Urine Bilirubin NEGATIVE Urine Urobilinogen 0.2 (NORMAL) Ur Leukocyte Esterase NEGATIVE Urine RBC None Seen Urine WBC 0-3 Ur Squamous Epith Cells NONE SEEN Urine Bacteria None Seen Urine Culture Comments NOT INDICATED 12/07/18 12/07/18 01:33 02:05 WBC RBC Hgb Hct MCV MCH MCHC RDW Plt Count MPV Neut # (Auto) Lymph # (Auto) Nicholas # (Auto) Eos # (Auto) Baso # (Auto) Absolute Nucleated RBC Total Counted Band Neuts % (Manual) Abnorm Lymph % (Manual) Nucleated RBC % Neutrophils # (Manual) Lymphocytes # (Manual) Monocytes # (Manual) Eosinophils # (Manual) Basophils # (Manual) Platelet Estimate RBC Morph Micro Appear VBG pH VBG pCO2 VBG pO2 VBG HCO3 VBG Total CO2 VBG O2 Saturation VBG Base Excess Sodium Potassium Chloride Carbon Dioxide Anion Gap BUN Creatinine Estimated GFR (MDRD) Glucose POC Whole Bld Glucose 434 H 433 H Lactic Acid Calcium Total Bilirubin AST ALT Alkaline Phosphatase Troponin I Total Protein Albumin Globulin Albumin/Globulin Ratio Lipase Urine Color Urine Clarity Urine pH Ur Specific [place] Urine Protein Urine Glucose (UA) Urine Ketones Urine Occult Blood Urine Nitrite Urine Bilirubin Urine Urobilinogen Ur Leukocyte Esterase Urine RBC Urine WBC Ur Squamous Epith Cells Urine Bacteria Urine Culture Comments PD MEDICAL DECISION MAKING - ED course Complexity details: reviewed results, re-evaluated patient, considered differential, d/w patient, d/w lead sales consultant ED course: 28-year-old heart transplant patient sent by cardiology for hyperglycemia. No evidence of diabetic ketoacidosis. I consulted patient's bander operator who recommended transfer to [facility] emergency department.Patient given 10 units IV insulin and 3 L IV fluids per cardiology recommendation. Departure - Departure Disposition: 02 Transfer Acute Care Hosp Discharge Date/Time: 12/07/18 02:42
--- NOTE | 2018-12-07 11:52 | XRAY Report ---
Reason: HEART TRANSPLANT Procedure Date: 12/07/2018 Accession Number: [id number] / [id number] Procedure: XR - Chest 1 View X-Ray CPT Code: 64393 FULL RESULT: EXAM: CHEST RADIOGRAPHY EXAM DATE: 12/07/2018 12:40 AM. CLINICAL HISTORY: Shortness of breath. COMPARISON: None. TECHNIQUE: 1 view. FINDINGS: Lungs/Pleura: Left basilar atelectatic changes. There is no confluent lung consolidation. No pleural effusion or pneumothorax. Mediastinum: Status post median sternotomy and CABG. Normal heart size. Other: None. IMPRESSION: Unremarkable portable chest radiograph. RADIA
== END 2018-12-07 02:42 | disposition short-term general hospital (02) ==
LOC: ED 21:40
DX: R73.9 Hyperglycemia, unspecified (principal); R35.8 Other polyuria; Z94.1 Heart transplant status; R00.0 Tachycardia, unspecified; I45.10 Unspecified right bundle-branch block; I45.81 Long QT syndrome; I11.0 Hypertensive heart disease with heart failure; I50.9 Heart failure, unspecified; Z79.01 Long term (current) use of anticoagulants
CPT/HCPCS: 36415; 71045; 80053; 81001; 82803; 83605; 83690; 84484; 85025; 93005; 99284; 99285; J1815; 87086

== ENCOUNTER 2018-12-07 02:45 | Outpatient (CLI) | payer MEDICAID | END 2018-12-07 02:46 | disposition home or self-care (01) | LOC: EMS 02:45 | PROVIDERS: ATTEND Surgery | DX: R73.9 Hyperglycemia, unspecified (principal) ==

== ENCOUNTER 2018-12-16 10:14 | Outpatient (CLI) | payer MEDICAID ==
[2018-12-16 12:39] LABS: BASOPHILS % (AUTO) 0.3 %; EOSINOPHILS % (AUTO) 2.3 %; HGB - HEMOGLOBIN 11.5 g/dL (14.0-18.0); LYMPHOCYTES # (AUTO) 0.4 10^3/uL (1.5-3.5); MEAN CORPUSCULAR HGB CONC 33.5 g/dL (32.0-36.0); MEAN CORPUSCULAR VOLUME 86.8 fL (80.0-94.0); MEAN PLATELET VOLUME 7.8 fL (7.4-11.4); MONOCYTES # (AUTO) 0.1 10^3/uL (0.0-1.0); MONOCYTES % (AUTO) 9.2 %; NEUTROPHILS % (AUTO) 50.2 %; PLT - PLATELET COUNT 302 10^3/uL (130-450); RED BLOOD COUNT 3.95 10^6/uL (4.70-6.10); RED CELL DISTRIBUTION WIDTH 13.6 % (12.0-15.0)
[2018-12-16 13:39] LABS: ALBUMIN 4.3 g/dL (3.2-5.5); ALBUMIN/GLOBULIN RATIO 1.4 (1.0-2.2); BILIRUBIN,TOTAL 0.7 mg/dL (0.2-1.0); CALCIUM 10.5 mg/dL (8.5-10.3); CREATININE 1.2 mg/dL (0.6-1.2); TOTAL PROTEIN 7.4 g/dL (6.7-8.2)
[2018-12-16 19:16] LABS: NEUTROPHILS # (AUTO) 0.6 10^3/uL (1.5-6.6)
[2018-12-16 19:17] LABS: PLATELET ESTIMATE, MANUAL NORMAL (130-450,000) (NORMAL); PLATELET MORPHOLOGY NORMAL APPEARANCE (NORMAL); RBC MORPHOLOGY (MULTIPLE) NORMAL APPEARANCE (NORMAL)
[2018-12-20 10:40] LABS: WHITE BLOOD COUNT 1.2 x10^3/uL (4.8-10.8)
== END 2018-12-16 23:59 | disposition home or self-care (01) ==
LOC: LAB.N 10:14
PROVIDERS: ATTEND Internal Medicine Infectious Disease
DX: Z94.1 Heart transplant status (principal)
CPT/HCPCS: 36415; 80053; 81599; 85025

== ENCOUNTER 2018-12-28 08:00 | Outpatient (CLI) | payer MEDICAID ==
[2018-12-28 19:08] LABS: BASOPHILS % (AUTO) 1.4 %; EOSINOPHILS % (AUTO) 1.9 %; HGB - HEMOGLOBIN 11.7 g/dL (14.0-18.0); LYMPHOCYTES # (AUTO) 0.5 10^3/uL (1.5-3.5); LYMPHOCYTES % (AUTO) 35.6 %; MEAN CORPUSCULAR HEMOGLOBIN 29.1 pg (27.0-31.0); MEAN CORPUSCULAR HGB CONC 32.7 g/dL (32.0-36.0); MEAN CORPUSCULAR VOLUME 88.9 fL (80.0-94.0); MEAN PLATELET VOLUME 7.7 fL (7.4-11.4); MONOCYTES % (AUTO) 2.1 %; NEUTROPHILS # (AUTO) 0.8 10^3/uL (1.5-6.6); PLT - PLATELET COUNT 275 10^3/uL (130-450); RED BLOOD COUNT 4.03 10^6/uL (4.70-6.10); RED CELL DISTRIBUTION WIDTH 15.6 % (12.0-15.0)
[2018-12-28 19:21] LABS: ALBUMIN 4.6 g/dL (3.2-5.5); ALBUMIN/GLOBULIN RATIO 1.4 (1.0-2.2); BILIRUBIN,TOTAL 0.3 mg/dL (0.2-1.0); CALCIUM 10.7 mg/dL (8.5-10.3); CREATININE 1.3 mg/dL (0.6-1.2); TOTAL PROTEIN 7.8 g/dL (6.7-8.2)
[2018-12-28 20:29] LABS: WHITE BLOOD COUNT 1.3 x10^3/uL (4.8-10.8)
== END 2018-12-28 23:59 | disposition home or self-care (01) ==
LOC: LAB.N 08:00
PROVIDERS: ATTEND Internal Medicine Infectious Disease
DX: Z94.1 Heart transplant status (principal)
CPT/HCPCS: 36415; 80053; 81599; 85025

== ENCOUNTER 2019-01-04 08:00 | Outpatient (CLI) | payer MEDICAID ==
[2019-01-04 19:28] LABS: BASOPHILS # (AUTO) 0.1 10^3/uL (0.0-0.1); BASOPHILS % (AUTO) 3.2 %; EOSINOPHILS % (AUTO) 2.1 %; HGB - HEMOGLOBIN 12.5 g/dL (14.0-18.0); LYMPHOCYTES # (AUTO) 0.6 10^3/uL (1.5-3.5); LYMPHOCYTES % (AUTO) 34.1 %; MEAN CORPUSCULAR HGB CONC 32.5 g/dL (32.0-36.0); MEAN CORPUSCULAR VOLUME 89.2 fL (80.0-94.0); MEAN PLATELET VOLUME 7.6 fL (7.4-11.4); MONOCYTES % (AUTO) 1.1 %; NEUTROPHILS % (AUTO) 59.5 %; PLT - PLATELET COUNT 350 10^3/uL (130-450); RED CELL DISTRIBUTION WIDTH 16.3 % (12.0-15.0)
[2019-01-04 19:32] LABS: ALBUMIN 4.8 g/dL (3.2-5.5); ALBUMIN/GLOBULIN RATIO 1.5 (1.0-2.2); BILIRUBIN,TOTAL 0.6 mg/dL (0.2-1.0); CALCIUM 10.5 mg/dL (8.5-10.3); CREATININE 1.4 mg/dL (0.6-1.2); TOTAL PROTEIN 7.9 g/dL (6.7-8.2)
[2019-01-04 19:54] LABS: WHITE BLOOD COUNT 1.6 x10^3/uL (4.8-10.8)
== END 2019-01-04 23:59 | disposition home or self-care (01) ==
LOC: LAB.N 08:00
PROVIDERS: ATTEND Internal Medicine Infectious Disease
DX: Z94.1 Heart transplant status (principal)
CPT/HCPCS: 36415; 80053; 81599; 85025

== ENCOUNTER 2019-01-13 13:30 | Outpatient (CLI) | payer MEDICAID ==
[2019-01-13 19:05] LABS: BASOPHILS % (AUTO) 0.8 %; HGB - HEMOGLOBIN 12.4 g/dL (14.0-18.0); LYMPHOCYTES % (AUTO) 38.9 %; MEAN CORPUSCULAR HEMOGLOBIN 29.6 pg (27.0-31.0); MEAN CORPUSCULAR HGB CONC 32.9 g/dL (32.0-36.0); MEAN CORPUSCULAR VOLUME 89.9 fL (80.0-94.0); MEAN PLATELET VOLUME 7.9 fL (7.4-11.4); MONOCYTES % (AUTO) 7.3 %; PLT - PLATELET COUNT 373 10^3/uL (130-450); RED BLOOD COUNT 4.19 10^6/uL (4.70-6.10); RED CELL DISTRIBUTION WIDTH 17.2 % (12.0-15.0); WHITE BLOOD COUNT 2.4 x10^3/uL (4.8-10.8)
[2019-01-13 19:12] LABS: ABNORMAL LYMPHS % (MANUAL) 0 %; BAND NEUTROPHILS % (MANUAL) 0 %
[2019-01-13 19:43] LABS: BASOPHILS % (MANUAL) 1 %; LYMPHOCYTES # (MANUAL) 0.7 10^3/uL (1.5-3.5); LYMPHOCYTES % (MANUAL) 31 %; MONOCYTES # (MANUAL) 0.2 10^3/uL (0.0-1.0); NEUTROPHILS # (MANUAL) 1.4 10^3/uL (1.5-6.6); NEUTROPHILS % (MANUAL) 60 %
[2019-01-13 19:44] LABS: DIFFERENTIAL COMMENT MANUAL DIFFERENTIAL; PLATELET ESTIMATE, MANUAL NORMAL (130-450,000) (NORMAL); PLATELET MORPHOLOGY NORMAL APPEARANCE (NORMAL); RBC MORPHOLOGY (MULTIPLE) 1+ ANISOCYTOSIS (NORMAL)
== END 2019-01-13 23:59 | disposition home or self-care (01) ==
LOC: LAB.N 13:30
PROVIDERS: ATTEND Internal Medicine Infectious Disease
DX: Z48.21 Encounter for aftercare following heart transplant (principal)
CPT/HCPCS: 36415; 85025

== ENCOUNTER 2019-01-18 16:04 | Outpatient (CLI) | payer MEDICAID | END 2019-01-18 16:05 | disposition home or self-care (01) | LOC: DI 16:04 | PROVIDERS: ATTEND Nurse Practitioner Gerontology | DX: M79.672 Pain in left foot (principal); Z53.9 Procedure and treatment not carried out, unspecified reason ==

== ENCOUNTER 2019-01-26 10:17 | Outpatient (CLI) | payer MEDICAID ==
[2019-01-26 12:24] LABS: CALCIUM 10.5 mg/dL (8.5-10.3); CREATININE 1.3 mg/dL (0.6-1.2)
== END 2019-01-26 23:59 | disposition home or self-care (01) ==
LOC: LAB.N 10:17
PROVIDERS: ATTEND Internal Medicine Cardiovascular Disease
DX: Z94.1 Heart transplant status (principal)
CPT/HCPCS: 36415; 80048; 80197

== ENCOUNTER 2019-06-03 08:00 | Outpatient (CLI) | payer MEDICAID ==
[2019-06-03 19:42] LABS: CREATININE,URINE 143.1 mg/dL
[2019-06-03 19:43] LABS: TOTAL PROTEIN,URINE TIMED < 6 mg/dL
== END 2019-06-03 23:59 | disposition home or self-care (01) ==
LOC: LAB.N 08:00
PROVIDERS: ATTEND Internal Medicine Cardiovascular Disease
DX: Z94.1 Heart transplant status (principal)
CPT/HCPCS: 82570; 84156

== ENCOUNTER 2019-06-15 08:00 | Outpatient (CLI) | payer MEDICAID ==
[2019-06-15 13:12] LABS: CALCIUM 10.2 mg/dL (8.5-10.3); CREATININE 1.2 mg/dL (0.6-1.2)
== END 2019-06-15 23:59 | disposition home or self-care (01) ==
LOC: LAB.N 08:00
PROVIDERS: ATTEND Internal Medicine Cardiovascular Disease
DX: Z94.1 Heart transplant status (principal)
CPT/HCPCS: 36415; 80048; 80195; 80197; 81599

== ENCOUNTER 2019-11-02 13:55 | Outpatient (CLI) | payer MEDICAID ==
[2019-11-02 19:30] LABS: ALBUMIN 4.6 g/dL (3.2-5.5); CALCIUM 10.2 mg/dL (8.5-10.3); CREATININE 1.1 mg/dL (0.6-1.2); PHOSPHORUS 3.2 mg/dL (2.5-4.6)
== END 2019-11-02 23:59 | disposition home or self-care (01) ==
LOC: LAB.N 13:55
PROVIDERS: ATTEND Internal Medicine Endocrinology, Diabetes & Metabolism
DX: E83.52 Hypercalcemia (principal)
CPT/HCPCS: 36415; 80069; 82306; 82652; 83519; 83970

== ENCOUNTER 2019-11-06 08:25 | Outpatient (CLI) | payer MEDICAID ==
[2019-11-07 19:26] LABS: CREATININE,URINE 189.3 mg/dL
== END 2019-11-06 23:59 | disposition home or self-care (01) ==
LOC: LAB.R 08:25
PROVIDERS: ATTEND Internal Medicine Endocrinology, Diabetes & Metabolism
DX: E83.52 Hypercalcemia (principal)
CPT/HCPCS: 82340; 82570

== ENCOUNTER 2019-12-02 09:57 | Outpatient (CLI) | payer MEDICAID | END 2019-12-02 23:59 | disposition home or self-care (01) | LOC: LAB.N 09:57 | PROVIDERS: ATTEND Internal Medicine Cardiovascular Disease | DX: Z94.1 Heart transplant status (principal) | CPT/HCPCS: 36415; 80195; 80197; 81599 ==

== ENCOUNTER 2019-12-14 15:36 | Outpatient (CLI) | payer MEDICAID ==
--- NOTE | 2019-12-15 09:19 | Ultrasound Report ---
Reason: PRIMARY HYPERPARATHYROIDISM Procedure Date: 12/14/2019 Accession Number: [id number] / [id number] Procedure: US - Head or Neck Soft Tissue CPT Code: Final Report FULL RESULT: EXAM: THYROID ULTRASOUND EXAM DATE: 12/14/2019 04:30 PM. CLINICAL HISTORY: Primary hyperparathyroidism. COMPARISON: None. TECHNIQUE: Real time sonographic imaging of the thyroid was performed by the engineering psychologist. Multiple truck sales representative static images were saved for review. FINDINGS: THYROID GLAND: Right Lobe: 4.4 x 1.4 x 1.4 cm, volume 4.5 cc. Normal background echotexture. Right Lobe Nodules: None. Left Lobe: 3.8 x 1.3 x 1.7 cm, volume 4.4 cc. Normal background echotexture. Left Lobe Nodules: Within the capsule of the thyroid is an almost geographic-appearing mildly hypoechoic 0.6 x 0.3 x 0.5 cm nodule. Isthmus: 0.6 cm AP. Normal background echotexture. Isthmic Nodules: None. LYMPH NODES: No adenopathy demonstrated in the central or lateral compartment. OTHER: A hypoechoic 0.6 x 0.3 x 0.4 cm ovoid nodule along the lateral margin of the inferior pole of the left thyroid gland, outside of the capsule potentially represents a parathyroid or small lymph node. No definite lymph node architecture is seen. Adjacent to the posterior margin of the right thyroid gland is an ovoid hypoechoic nodule intimately associated with the thyroid capsule which measures 0.7 x 0.3 x 0.7 cm, possible parathyroid gland. IMPRESSION: 2 possible candidate nodules compatible with parathyroid gland are identified as described above. Sonographically somewhat favor the nodule on the right. Management recommendations are based on 2015 [place] [employer] Management Guidelines for Adult Patients with Thyroid Nodules and Differentiated Thyroid Cancer. RADIA
== END 2019-12-14 15:37 | disposition home or self-care (01) ==
LOC: DI 15:36
PROVIDERS: ATTEND Internal Medicine Endocrinology, Diabetes & Metabolism
DX: E21.0 Primary hyperparathyroidism (principal); E04.2 Nontoxic multinodular goiter
CPT/HCPCS: 76536

== ENCOUNTER 2019-12-16 10:00 | Outpatient (CLI) | payer MEDICAID ==
[2019-12-16 12:21] LABS: CALCIUM 10.1 mg/dL (8.5-10.3); CREATININE 1.2 mg/dL (0.6-1.2)
== END 2019-12-16 23:59 | disposition home or self-care (01) ==
LOC: LAB.N 10:00
PROVIDERS: ATTEND Internal Medicine Cardiovascular Disease
DX: Z94.1 Heart transplant status (principal)
CPT/HCPCS: 36415; 80048; 80195; 80197; 81599

== ENCOUNTER 2020-02-21 11:02 | Outpatient (CLI) | payer MEDICAID ==
[2020-02-21 13:36] LABS: EOSINOPHILS % (AUTO) 0.8 %; HGB - HEMOGLOBIN 12.8 g/dL (14.0-18.0); LYMPHOCYTES # (AUTO) 1.4 10^3/uL (1.5-3.5); LYMPHOCYTES % (AUTO) 37.3 %; MEAN CORPUSCULAR HEMOGLOBIN 25.9 pg (27.0-31.0); MEAN CORPUSCULAR HGB CONC 31.9 g/dL (32.0-36.0); MEAN CORPUSCULAR VOLUME 81.2 fL (80.0-94.0); MEAN PLATELET VOLUME 10.1 fL (7.4-11.4); MONOCYTES # (AUTO) 0.3 10^3/uL (0.0-1.0); MONOCYTES % (AUTO) 7.1 %; NEUTROPHILS % (AUTO) 54.5 %; PLT - PLATELET COUNT 256 10^3/uL (130-450); RED BLOOD COUNT 4.94 10^6/uL (4.70-6.10); RED CELL DISTRIBUTION WIDTH 12.9 % (12.0-15.0); WHITE BLOOD COUNT 3.7 x10^3/uL (4.8-10.8)
[2020-02-21 13:50] LABS: ALBUMIN 4.6 g/dL (3.2-5.5); ALBUMIN/GLOBULIN RATIO 1.3 (1.0-2.2); ALKALINE PHOSPHATASE 48 IU/L (42-121); ALT ALANINE AMINOTRANSFERASE 55 IU/L (10-60); AST ASPARTATE AMINOTRANSFERASE 46 IU/L (10-42); BILIRUBIN,TOTAL 0.4 mg/dL (0.2-1.0); BUN - BLOOD UREA NITROGEN 16 mg/dL (6-20); CALCIUM 10.5 mg/dL (8.5-10.3); CARBON DIOXIDE - CO2 24 mmol/L (21-32); CHLORIDE 105 mmol/L (101-111); CHOLESTEROL 147 mg/dL; CK- CREATINE KINASE 774 IU/L (22-269); CREATININE 1.1 mg/dL (0.6-1.2); GLUCOSE 106 mg/dL (70-100); HDL CHOLESTEROL 21 mg/dL; LDL CHOLESTEROL,CALCULATED 80 mg/dL; LDL/HDL RATIO 3.8 (<3.6); MAGNESIUM 1.6 mg/dL (1.7-2.8); SODIUM 138 mmol/L (135-145); TOTAL PROTEIN 8.2 g/dL (6.7-8.2); VLDL CHOLESTEROL 46 mg/dL
== END 2020-02-21 23:59 | disposition home or self-care (01) ==
LOC: LAB.WCP 11:02
PROVIDERS: ATTEND Internal Medicine Cardiovascular Disease
DX: Z94.1 Heart transplant status (principal); E78.5 Hyperlipidemia, unspecified
CPT/HCPCS: 36415; 80053; 80061; 80195; 80197; 81599; 82550; 83721; 83735; 85025

== ENCOUNTER 2020-04-03 14:50 | Outpatient (CLI) | payer MEDICAID ==
[2020-04-03 18:54] LABS: ALBUMIN 4.8 g/dL (3.2-5.5); ALBUMIN/GLOBULIN RATIO 1.4 (1.0-2.2); ALKALINE PHOSPHATASE 54 IU/L (42-121); ALT ALANINE AMINOTRANSFERASE 47 IU/L (10-60); AST ASPARTATE AMINOTRANSFERASE 41 IU/L (10-42); BILIRUBIN,TOTAL 0.2 mg/dL (0.2-1.0); BUN - BLOOD UREA NITROGEN 19 mg/dL (6-20); CALCIUM 10.6 mg/dL (8.5-10.3); CARBON DIOXIDE - CO2 27 mmol/L (21-32); CHLORIDE 102 mmol/L (101-111); CHOL/HDL RATIO 7.1 (<5.0); CHOLESTEROL 142 mg/dL; CK- CREATINE KINASE 850 IU/L (22-269); CREATININE 1.3 mg/dL (0.6-1.2); GLUCOSE 182 mg/dL (70-100); HDL CHOLESTEROL 20 mg/dL; SODIUM 134 mmol/L (135-145); TOTAL PROTEIN 8.3 g/dL (6.7-8.2)
[2020-04-03 19:40] LABS: LDL CHOLESTEROL,DIRECT 68 mg/dL; LDLD/HDL RATIO 3.4 (<3.6)
== END 2020-04-03 23:59 | disposition home or self-care (01) ==
LOC: LAB.WCP 14:50
PROVIDERS: ATTEND Internal Medicine Cardiovascular Disease
DX: Z94.1 Heart transplant status (principal)
CPT/HCPCS: 36415; 80053; 80061; 82550; 83721

== ENCOUNTER 2020-07-06 08:00 | Outpatient (CLI) | payer MEDICAID | END 2020-07-06 23:59 | disposition home or self-care (01) | LOC: LAB.WCP 08:00 | PROVIDERS: ATTEND Nurse Practitioner Adult Health | DX: Z94.1 Heart transplant status (principal) | CPT/HCPCS: 36415; 82550 ==

== ENCOUNTER 2020-07-30 19:12 | Outpatient (CLI) | payer MEDICAID | END 2020-07-30 19:13 | disposition home or self-care (01) | LOC: COV 19:12 | PROVIDERS: ATTEND Internal Medicine Cardiovascular Disease | DX: Z01.812 Encounter for preprocedural laboratory examination (principal); Z20.828 Contact with and (suspected) exposure to other viral communicable diseases; Z94.1 Heart transplant status ==

== ENCOUNTER 2020-11-13 07:00 | Outpatient (CLI) | payer MEDICAID | END 2020-11-13 23:59 | disposition home or self-care (01) | LOC: LAB.R 07:00 | PROVIDERS: ATTEND Otolaryngology Plastic Surgery within the Head & Neck | DX: E83.52 Hypercalcemia (principal) | CPT/HCPCS: 82340 ==

== ENCOUNTER 2020-11-23 08:00 | Outpatient (CLI) | payer MEDICAID ==
[2020-11-23 19:31] LABS: CREATININE 1.2 mg/dL (0.6-1.2)
[2020-11-23 20:21] LABS: HEMOGLOBIN A1c% 8.2 % (4.27-6.07)
[2020-11-23 21:05] LABS: MICROALBUM/CREATININE RATIO,UR 7.5 ug/mg (<30.0); MICROALBUMIN,URINE 2.8 mg/dL (0-300.0)
== END 2020-11-23 23:59 | disposition home or self-care (01) ==
LOC: LAB.WCP 08:00
PROVIDERS: ATTEND Nurse Practitioner Family
DX: E11.9 Type 2 diabetes mellitus without complications (principal)
CPT/HCPCS: 36415; 80048; 82043; 82570; 83036

== ENCOUNTER 2021-01-11 08:00 | Outpatient (CLI) | payer MEDICAID ==
[2021-01-11 18:37] LABS: BASOPHILS % (AUTO) 0.3 %; EOSINOPHILS # (AUTO) 0.2 10^3/uL (0.0-0.7); HCT - HEMATOCRIT 42.9 % (42.0-52.0); HGB - HEMOGLOBIN 13.4 g/dL (14.0-18.0); LYMPHOCYTES # (AUTO) 1.7 10^3/uL (1.5-3.5); LYMPHOCYTES % (AUTO) 45.5 %; MEAN CORPUSCULAR HEMOGLOBIN 26.4 pg (27.0-31.0); MEAN CORPUSCULAR HGB CONC 31.2 g/dL (32.0-36.0); MEAN CORPUSCULAR VOLUME 84.4 fL (80.0-94.0); MONOCYTES # (AUTO) 0.2 10^3/uL (0.0-1.0); MONOCYTES % (AUTO) 5.9 %; NEUTROPHILS # (AUTO) 1.7 10^3/uL (1.5-6.6); PLT - PLATELET COUNT 262 10^3/uL (130-450); RED BLOOD COUNT 5.08 10^6/uL (4.70-6.10); RED CELL DISTRIBUTION WIDTH 13.9 % (12.0-15.0); WHITE BLOOD COUNT 3.8 x10^3/uL (4.8-10.8)
[2021-01-11 19:14] LABS: CHOL/HDL RATIO 6.9 (<5.0); CHOLESTEROL 166 mg/dL; HDL CHOLESTEROL 24 mg/dL; LDL CHOLESTEROL,CALCULATED 84 mg/dL; LDL/HDL RATIO 3.5 (<3.6); TRIGLYCERIDES 291 mg/dL; VLDL CHOLESTEROL 58 mg/dL
[2021-01-11 19:29] LABS: ALBUMIN 4.7 g/dL (3.2-5.5); ALBUMIN/GLOBULIN RATIO 1.4 (1.0-2.2); BILIRUBIN,TOTAL 0.4 mg/dL (0.2-1.0); CALCIUM 11.5 mg/dL (8.5-10.3); CREATININE 1.2 mg/dL (0.6-1.2); MAGNESIUM 1.6 mg/dL (1.7-2.8); POTASSIUM 4.6 mmol/L (3.5-5.0)
[2021-01-11 19:29] LABS: ESTIMATED AVERAGE GLUCOSE 169 mg/dL (70-100); HEMOGLOBIN A1c% 7.5 % (4.27-6.07)
== END 2021-01-11 23:59 | disposition home or self-care (01) ==
LOC: LAB.WCP 08:00
PROVIDERS: ATTEND Internal Medicine Endocrinology, Diabetes & Metabolism
DX: E13.9 Other specified diabetes mellitus without complications (principal); Z94.1 Heart transplant status
CPT/HCPCS: 36415; 80053; 80061; 80195; 80197; 81599; 83036; 83721; 83735; 85025

== ENCOUNTER 2021-01-14 09:15 | Outpatient (CLI) | payer MEDICAID | END 2021-01-14 23:59 | disposition home or self-care (01) | LOC: LAB.WCP 09:15 | PROVIDERS: ATTEND Otolaryngology Plastic Surgery within the Head & Neck | DX: E83.52 Hypercalcemia (principal) | CPT/HCPCS: 82340 ==

== ENCOUNTER 2021-01-28 07:00 | Outpatient (CLI) | payer MEDICAID | END 2021-01-28 23:59 | disposition home or self-care (01) | LOC: COV 07:00 | PROVIDERS: ATTEND Family Medicine | DX: Z01.812 Encounter for preprocedural laboratory examination (principal); Z20.822 Contact with and (suspected) exposure to COVID-19 ==

== ENCOUNTER 2021-02-15 08:00 | Outpatient (CLI) | payer MEDICAID | END 2021-02-15 23:59 | disposition home or self-care (01) | LOC: LAB.WCP 08:00 | DX: D35.1 Benign neoplasm of parathyroid gland (principal) | CPT/HCPCS: 36415; 82310; 83970 ==

== ENCOUNTER 2021-07-02 10:32 | Outpatient (CLI) | payer MEDICAID | END 2021-07-02 23:59 | disposition home or self-care (01) | LOC: LAB.WCP 10:32 | PROVIDERS: ATTEND Nurse Practitioner Acute Care | DX: D35.1 Benign neoplasm of parathyroid gland (principal) | CPT/HCPCS: 36415; 82310; 82330; 83970 ==

== ENCOUNTER 2021-07-24 10:30 | Outpatient (CLI) | payer MEDICAID ==
[2021-07-24 18:21] LABS: CALCIUM 10.3 mg/dL (8.5-10.3); CREATININE 1.2 mg/dL (0.6-1.2); POTASSIUM 4.4 mmol/L (3.5-5.0)
== END 2021-07-24 23:59 | disposition home or self-care (01) ==
LOC: LAB.WCP 10:30
PROVIDERS: ATTEND Internal Medicine Cardiovascular Disease
DX: Z94.1 Heart transplant status (principal)
CPT/HCPCS: 36415; 80048; 80195; 80197; 81599

== ENCOUNTER 2021-12-23 10:43 | Outpatient (CLI) | payer MEDICAID ==
[2021-12-23 19:14] LABS: ALBUMIN 4.7 g/dL (3.2-5.5); ALBUMIN/GLOBULIN RATIO 1.3 (1.0-2.2); BILIRUBIN,TOTAL 0.4 mg/dL (0.2-1.0); CALCIUM 10.1 mg/dL (8.5-10.3); POTASSIUM 4.2 mmol/L (3.5-5.0); TOTAL PROTEIN 8.3 g/dL (6.7-8.2)
== END 2021-12-23 10:44 | disposition home or self-care (01) ==
LOC: LAB.N 10:43
PROVIDERS: ATTEND Internal Medicine Cardiovascular Disease
DX: Z94.1 Heart transplant status (principal)
CPT/HCPCS: 36415; 80053; 80195; 80197; 81599; 82550

== ENCOUNTER 2022-03-24 11:38 | Outpatient (CLI) | payer MEDICAID ==
[2022-03-25 10:08] LABS: SIROLIMUS (RAPAMUNE) 2.7 ng/mL (3.0-20.0); TACROLIMUS (FK506) 36.3 ng/mL (2.0-20.0)
[2022-03-25 17:54] LABS: CALCIUM 10.6 mg/dL (8.5-10.3); CREATININE 1.3 mg/dL (0.6-1.2); POTASSIUM 4.5 mmol/L (3.5-5.0)
== END 2022-03-24 11:39 | disposition home or self-care (01) ==
LOC: LAB.N 11:38
PROVIDERS: ATTEND Internal Medicine Cardiovascular Disease
DX: Z94.1 Heart transplant status (principal)
CPT/HCPCS: 36415; 80048; 80195; 80197; 81599

== ENCOUNTER 2022-05-01 11:34 | Outpatient (CLI) | payer MEDICAID ==
[2022-05-01 18:01] LABS: ALBUMIN 4.7 g/dL (3.2-5.5); ALBUMIN/GLOBULIN RATIO 1.3 (1.0-2.2); BILIRUBIN,TOTAL 0.4 mg/dL (0.2-1.0); CALCIUM 10.2 mg/dL (8.5-10.3); CREATININE 1.2 mg/dL (0.6-1.2); MAGNESIUM 1.5 mg/dL (1.7-2.8); POTASSIUM 4.5 mmol/L (3.5-5.0); TOTAL PROTEIN 8.3 g/dL (6.7-8.2)
[2022-05-02 07:10] LABS: SIROLIMUS (RAPAMUNE) 2.1 ng/mL (3.0-20.0); TACROLIMUS (FK506) 6.3 ng/mL (2.0-20.0)
== END 2022-05-01 11:35 | disposition home or self-care (01) ==
LOC: LAB.N 11:34
PROVIDERS: ATTEND Internal Medicine Cardiovascular Disease
DX: Z94.1 Heart transplant status (principal)
CPT/HCPCS: 36415; 80053; 80195; 80197; 83735

== ENCOUNTER 2022-08-15 11:42 | Outpatient (CLI) | payer MEDICAID ==
[2022-08-16 10:08] LABS: SIROLIMUS (RAPAMUNE) None Detected ng/mL (3.0-20.0); TACROLIMUS (FK506) 5.7 ng/mL (2.0-20.0)
== END 2022-08-15 11:43 | disposition home or self-care (01) ==
LOC: LAB.N 11:42
PROVIDERS: ATTEND Internal Medicine Cardiovascular Disease
DX: Z94.1 Heart transplant status (principal)
CPT/HCPCS: 36415; 80195; 80197

== ENCOUNTER 2022-08-20 10:36 | Outpatient (CLI) | payer MEDICAID ==
[2022-08-20 13:15] LABS: ALBUMIN 4.7 g/dL (3.2-5.5); ALBUMIN/GLOBULIN RATIO 1.2 (1.0-2.2); BILIRUBIN,TOTAL 0.4 mg/dL (0.2-1.0); CALCIUM 9.9 mg/dL (8.5-10.3); CREATININE 1.1 mg/dL (0.6-1.2); MAGNESIUM 1.7 mg/dL (1.7-2.8); POTASSIUM 4.1 mmol/L (3.5-5.0); TOTAL PROTEIN 8.6 g/dL (6.7-8.2)
[2022-08-21 10:09] LABS: SIROLIMUS (RAPAMUNE) 2.1 ng/mL (3.0-20.0); TACROLIMUS (FK506) 6.9 ng/mL (2.0-20.0)
== END 2022-08-20 10:37 | disposition home or self-care (01) ==
LOC: LAB.N 10:36
PROVIDERS: ATTEND Internal Medicine Cardiovascular Disease
DX: Z94.1 Heart transplant status (principal)
CPT/HCPCS: 36415; 80053; 80195; 80197; 83735

== ENCOUNTER 2022-08-28 08:00 | Outpatient (CLI) | payer MEDICAID ==
[2022-08-28 18:32] LABS: BILIRUBIN,URINE NEGATIVE (NEGATIVE); GLUCOSE, URINE (UA) NEGATIVE (NEGATIVE); KETONES,URINE (UA) NEGATIVE (NEGATIVE); LEUKOCYTE ESTERASE, URINE NEGATIVE (NEGATIVE); NITRITE,URINE NEGATIVE (NEGATIVE); OCCULT BLOOD,URINE NEGATIVE (NEGATIVE); PROTEIN,URINE NEGATIVE (NEGATIVE); UROBILINOGEN,URINE 0.2 (NORMAL) E.U./dL (NORMAL)
[2022-08-28 20:06] LABS: BACTERIA,URINE None Seen /HPF (None Seen); CLARITY,URINE CLEAR (CLEAR); RBC,URINE None Seen /HPF (0-5); SQUAMOUS EPITHELIAL CELL,UR NONE SEEN (<= Few); WBC,URINE 0-3 /HPF (0-3)
== END 2022-08-28 23:59 | disposition home or self-care (01) ==
LOC: LAB 08:00
PROVIDERS: ATTEND Nurse Practitioner
DX: R10.9 Unspecified abdominal pain (principal)
CPT/HCPCS: 81001; 87086

== ENCOUNTER 2022-09-10 15:45 | Outpatient (CLI) | payer MEDICAID ==
--- NOTE | 2022-09-10 17:48 | Ultrasound Report ---
PROCEDURE: Retroperitoneal INDICATIONS: RIGHT FLANK PAIN TECHNIQUE: Real-time scanning was performed of the retroperitoneal organs, with image documentation. COMPARISON: None. FINDINGS: Kidneys: Kidneys are normal in size. Right kidney measures 10.0 cm long; left kidney measures 10.9 cm long. Right renal cortical thickness is 2.1 cm; left renal cortical thickness is 2.1 cm. No dario d masses, hydronephrosis, or nephrolithiasis. Bladder: Pre-void bladder volume is 256 mL. Post-void residual is 5 mL. Pre-void images demonstrat e no intraluminal masses or stones. On pre-void images, bilateral ureteral jets are noted with color Doppler interrogation. (Of note, ureteral jets may not be detectable in up to 25% of cases due to i nsufficient differences in specific gravity between ureteral and bladder urine). Miscellaneous: No free abdominal fluid. IMPRESSION: No visualized stones or obstruction. Reviewed by: Guadalupe Marroquin MD on 09/10/2022 5:46 PM PST Approved by: Guadalupe Marroquin MD on 09/10/2022 5:46 PM PST Station ID: [id number]
== END 2022-09-10 15:46 | disposition home or self-care (01) ==
LOC: DI 15:45
PROVIDERS: ATTEND Nurse Practitioner
DX: R10.9 Unspecified abdominal pain (principal)

== ENCOUNTER 2022-10-28 10:59 | Outpatient (CLI) | payer MEDICAID ==
[2022-10-28 18:10] LABS: CALCIUM 9.6 mg/dL (8.5-10.3); CREATININE 1.2 mg/dL (0.6-1.2); POTASSIUM 4.3 mmol/L (3.5-5.0)
== END 2022-10-28 11:00 | disposition home or self-care (01) ==
LOC: LAB.F 10:59
DX: Z94.1 Heart transplant status (principal)
CPT/HCPCS: 36415; 80048; 80197

== ENCOUNTER 2022-12-19 10:12 | Outpatient (CLI) | payer MEDICAID ==
[2022-12-19 11:50] LABS: BASOPHILS % (AUTO) 0.2 %; EOSINOPHILS # (AUTO) 0.1 10^3/uL (0.0-0.7); EOSINOPHILS % (AUTO) 1.6 %; HCT - HEMATOCRIT 42.9 % (42.0-52.0); HGB - HEMOGLOBIN 13.7 g/dL (14.0-18.0); LYMPHOCYTES # (AUTO) 1.9 10^3/uL (1.5-3.5); LYMPHOCYTES % (AUTO) 43.5 %; MEAN CORPUSCULAR HEMOGLOBIN 26.2 pg (27.0-31.0); MEAN CORPUSCULAR HGB CONC 31.9 g/dL (32.0-36.0); MEAN CORPUSCULAR VOLUME 82.2 fL (80.0-94.0); MEAN PLATELET VOLUME 9.4 fL (7.4-11.4); MONOCYTES # (AUTO) 0.3 10^3/uL (0.0-1.0); NEUTROPHILS # (AUTO) 2.1 10^3/uL (1.5-6.6); NEUTROPHILS % (AUTO) 47.5 %; PLT - PLATELET COUNT 289 10^3/uL (130-450); RED BLOOD COUNT 5.22 10^6/uL (4.70-6.10); RED CELL DISTRIBUTION WIDTH 13.2 % (12.0-15.0); WHITE BLOOD COUNT 4.4 x10^3/uL (4.8-10.8)
[2022-12-19 12:04] LABS: ALBUMIN 4.6 g/dL (3.2-5.5); ALBUMIN/GLOBULIN RATIO 1.3 (1.0-2.2); BILIRUBIN,TOTAL 0.6 mg/dL (0.2-1.0); CALCIUM 9.8 mg/dL (8.5-10.3); CREATININE 1.2 mg/dL (0.6-1.2); MAGNESIUM 1.7 mg/dL (1.7-2.8); POTASSIUM 4.3 mmol/L (3.5-5.0); TOTAL PROTEIN 8.1 g/dL (6.7-8.2)
[2022-12-21 08:07] LABS: SIROLIMUS (RAPAMUNE) 2.3 ng/mL (3.0-20.0); TACROLIMUS (FK506) 8.8 ng/mL (2.0-20.0)
== END 2022-12-19 10:13 | disposition home or self-care (01) ==
LOC: LAB.N 10:12
PROVIDERS: ATTEND Internal Medicine Cardiovascular Disease
DX: Z94.1 Heart transplant status (principal)
CPT/HCPCS: 36415; 80053; 80195; 80197; 82550; 83735; 85025

== ENCOUNTER 2023-03-27 10:10 | Outpatient (CLI) | payer MEDICAID ==
[2023-03-27 12:18] LABS: CALCIUM 9.7 mg/dL (8.5-10.3); CREATININE 1.2 mg/dL (0.6-1.2); POTASSIUM 4.2 mmol/L (3.5-5.0)
== END 2023-03-27 10:11 | disposition home or self-care (01) ==
LOC: LAB.N 10:10
PROVIDERS: ATTEND Internal Medicine Cardiovascular Disease
DX: Z94.1 Heart transplant status (principal)
CPT/HCPCS: 36415; 80048; 80195; 80197

== ENCOUNTER 2023-04-14 15:34 | Emergency (ER) | payer MEDICAID ==
--- NOTE | 2023-04-14 15:59 | ED Physician Documentation ---
PD HPI ABD PAIN - Stated complaint Stated Complaint: ABD PX - Chief complaint Chief Complaint: Abd Pain - History obtained from History obtained from: Patient - History of Present Illness Timing - onset: Yesterday Timing - duration: Days (1) Timing - details: Abrupt onset (onset of upper to mid abd pain about 1-2 hours after eating BBQ and spicy foods. Has had nausea and vomiting. No diarrhea. Noprior similar episodes. Was feeling otherwise marleen prior to onset of symptoms above.), Still present Quality: Cramping, Aching, Pain Location: Epigastric, Other (upper ab) Radiation: Chest (lower esophageal area.) Worsened by: Eating Associated symptoms: Nausea, Vomiting, Loss of appetite. No: Fever, Hematemesis, Diarrhea Similar symptoms before: Has not had sx before Recently seen: Not recently seen Review of Systems Constitutional: denies: Fever, Chills Nose: denies: Rhinorrhea / runny nose, Congestion Throat: denies: Sore throat Respiratory: denies: Cough GI: reports: Abdominal Pain, Nausea, Vomiting. denies: Abdominal Swelling, Diarrhea PD PAST MEDICAL HISTORY - Past Medical History Cardiovascular: Congestive heart failure, Hypertension, Atrial flutter, Atrial fibrillation, Arrhythmia, Other (heart transplant 5 years ago without any problems. ) Respiratory: None Endocrine/Autoimmune: None GI: None : None HEENT: None Musculoskeletal: None Derm: None - Past Surgical History Past Surgical History: Yes Cardiovascular: Pacemaker, AICD, Other - Present Medications Home Medications: Ambulatory Orders Medication Instructions Recorded Confirmed Aspirin EC [Ecotrin] 81 mg PO DAILY 04/14/23 04/14/23 Insulin Lispro [Humalog Kwikpen 5 unit SUBQ TIDWM 04/14/23 04/14/23 U-100] Lisinopril [Zestril] 10 mg PO DAILY 04/14/23 04/14/23 Ondansetron Odt [Zofran] 4 mg TL Q6H PRN #10 tablet 04/14/23 Pravastatin [Pravachol] 10 mg PO DAILY 04/14/23 04/14/23 Sirolimus 0.5 mg PO DAILY 04/14/23 04/14/23 Sirolimus 2 mg PO DAILY 04/14/23 04/14/23 Tacrolimus [Prograf] 0.5 mg ORAL BID 04/14/23 04/14/23 Tacrolimus [Prograf] 5 mg PO BID 04/14/23 04/14/23 allopurinoL [Zyloprim] 100 mg PO DAILY 04/14/23 04/14/23 - Allergies Allergies/Adverse Reactions: Allergies Allergy/AdvReac Type Severity Reaction Status Date / Time No Known Drug Allergies Allergy Verified 04/14/23 15:44 - Social History Does the pt smoke?: No Smoking Status: Never smoker Does the pt drink ETOH?: No Does the pt have substance abuse?: No - Immunizations Immunizations are current?: Yes - POLST Patient has POLST: No PD ED PE NORMAL - Vitals Vital signs reviewed: Yes - General General: Alert and oriented X 3, Well developed/nourished, Other (appears in pain upper abd. ) - Neck Neck: Supple, no meningeal sign, No adenopathy - Cardiac Cardiac: No murmur. No: RRR (regular but tachycardic) - Abdomen Abdomen: Soft, Non distended, Other (He is tender in the epigastric to left upper quadrant area with localized guarding and tenderness to percussion. No referred tenderness from the lower abdomen. Mildly tender in the periumbilical area. Particularly not tender in the right lower quadrant.) - Derm Derm: Normal color, Warm and dry - Extremities Extremities: Normal ROM s pain, No edema, No calf tenderness / cord Results - Vitals Vitals: Vital Signs - 24 hr 04/14/23 04/14/23 04/14/23 15:44 15:59 16:05 Temperature 36.6 C Heart Rate 120 H Respiratory 20 19 20 Rate Blood Pressure 108/75 O2 Saturation 99 04/14/23 04/14/23 04/14/23 16:14 16:35 16:41 Temperature Heart Rate 111 H Respiratory 19 22 Rate Blood Pressure 121/101 H O2 Saturation 100 04/14/23 04/14/23 04/14/23 16:49 17:04 18:19 Temperature 36.4 C L Heart Rate 108 H 71 Respiratory 18 18 17 Rate Blood Pressure 109/73 O2 Saturation 117 H 99 Oxygen O2 Source Room air - Labs Labs: Laboratory Tests 04/14/23 04/14/23 16:15 16:15 WBC 7.0 RBC 5.96 Hgb 15.4 Hct 48.4 MCV 81.2 MCH 25.8 L MCHC 31.8 L RDW 13.2 Plt Count 317 MPV 9.0 Neut # (Auto) 5.1 Lymph # (Auto) 1.5 [place] # (Auto) 0.4 Eos # (Auto) 0.0 Baso # (Auto) 0.0 Absolute Nucleated RBC 0.00 Nucleated RBC % 0.0 Sodium 137 Potassium 4.0 Chloride 97 L Carbon Dioxide 26 Anion Gap 14.0 H BUN 23 H Creatinine 1.3 H Estimated GFR (MDRD) 79 L Glucose 143 H Calcium 10.6 H Magnesium 1.7 Total Bilirubin 0.5 AST 20 ALT 17 Alkaline Phosphatase 50 Total Protein 8.4 H Albumin 4.4 Globulin 4.0 Albumin/Globulin Ratio 1.1 Lipase 31 - Rads (name of study) abd/pelvic CT Relevant Findings:: Prelim report reviewed (segmental area of wall inflammation without perforation nor abscess in the mid ilieum area (ileitis). Some fluid in pelvis and culdesac. ), See rad report PD Medical Decision Making - ED course Complexity details: reviewed results (no history of UC/nor ulcers. no prior pancreatitis. He is heart transplant patient, stable. But will want to be caution as he is immunosuppressed due to medications. ), re-evaluated patient (improved with IV fluids, antiemetic and pain meds. Taking sips of water/ice chips and feeling okay. ), considered differential (consider food poisiong, viral GE, ulcer/gastritis, biliary colic, pancreatitis. Can get labs and imaging. ), d/w patient ED course: the patient was in discomfort due to abd pain. Given IV fluids, toradol, dialdud, zofran. He is feeling much improved and taking sips/ice chips. Departure - Departure Disposition: 01 Home, Self Care Clinical Impression: Acute upper abdominal pain, Segmental ileitis of small intestine, Nausea and vomiting Condition: Stable Record reviewed to determine appropriate education?: Yes Instructions: ED Nausea Vomiting Follow-Up: Ashley Nunes ARNP [Primary Care Provider] - Prescriptions: Ondansetron Odt [Zofran] 4 mg TL Q6H PRN #10 tablet PRN Reason: Nausea / Vomiting Comments: Your blood test did not show any inflammation of the pancreas or liver. Your creatinine was 1.3, Which looks to be similar to your baseline on prior lab test done here. You likely were some element of dehydrated and we did give you some IV fluids. You are sent home with ondansetron to use every 4-6 hours if needed for nausea. I would also suggest adding in some Maalox or Mylanta type antacids if needed for discomfort. There could be some element of irritation of the stomach (gastritis) that is part of your symptoms. It was not evident on the CT but would not always be. On the CT scan however there was segment of the ileum which is part of the small bowel that did show inflammation/edema. This is called ileitis. It can come from different reasons including viral type illness or a food related irritation. It can come from inflammatory or immune related as well such as a Crohn's disease type process. If this is transient and improves then most likely just a short-term process rivera ch as of viral or "food poisoning". If you do have resolved symptoms and are feeling well over the next day or 2 then no further work-up necessarily needed. I would contact your primary care and in particular your transplant team tomorrow to discuss with them. I do not think this would be a particular side effect or response to any of your transplant medications etc. but they would know better if there was particular things like this related to those. Return to the ER if worsening symptoms again. Small frequent fluids and liquids only overnight. Start with bland food tomorrow if you are tolerating okay.. Discharge Date/Time: 04/14/23 18:21
[2023-04-14 16:20] LABS: BASOPHILS % (AUTO) 0.1 %; EOSINOPHILS % (AUTO) 0.3 %; HCT - HEMATOCRIT 48.4 % (42.0-52.0); HGB - HEMOGLOBIN 15.4 g/dL (14.0-18.0); LYMPHOCYTES # (AUTO) 1.5 10^3/uL (1.5-3.5); LYMPHOCYTES % (AUTO) 21.8 %; MEAN CORPUSCULAR HEMOGLOBIN 25.8 pg (27.0-31.0); MEAN CORPUSCULAR HGB CONC 31.8 g/dL (32.0-36.0); MEAN CORPUSCULAR VOLUME 81.2 fL (80.0-94.0); MONOCYTES # (AUTO) 0.4 10^3/uL (0.0-1.0); MONOCYTES % (AUTO) 5.3 %; NEUTROPHILS # (AUTO) 5.1 10^3/uL (1.5-6.6); NEUTROPHILS % (AUTO) 72.2 %; PLT - PLATELET COUNT 317 10^3/uL (130-450); RED BLOOD COUNT 5.96 10^6/uL (4.70-6.10); RED CELL DISTRIBUTION WIDTH 13.2 % (12.0-15.0)
[2023-04-14] MEDS: SODIUM CHLORIDE 0.9% 1,000 ML IV STA (16:30)
[2023-04-14 16:33] LABS: ALBUMIN 4.4 g/dL (3.2-5.5); ALBUMIN/GLOBULIN RATIO 1.1 (1.0-2.2); BILIRUBIN,TOTAL 0.5 mg/dL (0.2-1.0); CALCIUM 10.6 mg/dL (8.5-10.3); CREATININE 1.3 mg/dL (0.6-1.2); MAGNESIUM 1.7 mg/dL (1.7-2.8); TOTAL PROTEIN 8.4 g/dL (6.7-8.2)
[2023-04-14] MEDS: ONDANSETRON 4 MG/2 ML VIAL IVP STA (16:35)
[2023-04-14] MEDS: HYDROmorphone 1 MG/ML CARPUJECT IVP STA (16:37)
[2023-04-14] MEDS: KETOROLAC 15 MG/ML VIAL IVP STA (16:37)
[2023-04-14] MEDS ORDERED: iohexoL-300 100 ML VIAL ONE (16:44)
--- NOTE | 2023-04-14 17:21 | CT Report ---
PROCEDURE: ABDOMEN/PELVIS W INDICATIONS: upper/mid abd pain since last evening CONTRAST: 100mL Omni 300 TECHNIQUE: After the administration of contrast, 5 mm thick sections acquired from the diaphragms to the symphys is. 5 mm thick coronal and sagittal reformats were acquired. For radiation dose reduction, the foll owing was used: automated exposure control, adjustment of mA and/or kV according to patient size. COMPARISON: None FINDINGS: Image quality: Excellent. Lung bases and heart: Right basilar atelectasis. Liver: No solid mass. Gallbladder and biliary tree: Spleen: No splenomegaly. Pancreas: No pancreatic ductal dilation. Adrenals: No adrenal nodule. Kidneys and ureters: No hydronephrosis. No renal cystic lesion which requires follow up. No solid mas s. Bowel and peritoneum: The distal esophagus and stomach are normal. The large bowel has diverticulosis without evidence of acute diverticulitis. A segment of small bowel in the left upper quadrant demons trates wall thickening and surrounding inflammation. There is fluid around the liver and spleen and i n the pelvis. Lymph nodes: No central or retroperitoneal adenopathy. Vessels: No infrarenal aortic aneurysm. PELVIS Reproductive organs: Unremarkable. Bladder: No abnormal wall thickening, accounting for underdistension. Pelvic lymph nodes: No pelvic adenopathy by size criteria. Bones: No aggressive osseous abnormality. Other: No significant ventral or inguinal hernia. IMPRESSION: Segmental abnormal proximal small bowel with mucosal edema, wall thickening, surrounding inflammation and free fluid in the perihepatic, perisplenic, and pelvic regions consistent with ilei tis. Differential diagnosis includes inflammatory bowel disease such as Crohn's and infectious ileiti s. Reviewed by: Kashmir Clarke on 04/14/2023 4:20 PM AKSTIVEN Approved by: Kashmir Clarke on 04/14/2023 4:20 PM [email or web address] Station ID: [id number]
[2023-04-14] MEDS: ONDANSETRON ODT 4 MG Prepack 2 TL PRN (18:17)
[2023-04-14] MEDS: HYDROcod/ACET 5/325 Prepack 4 PO STA (18:17)
[2023-04-14 18:24] VITALS: BP 109/73
[2023-04-14] MEDS: iohexoL-300 100 ML VIAL IVP ONE (18:30)
== END 2023-04-14 18:21 | disposition home or self-care (01) ==
LOC: ED 15:34
DX: K50.00 Crohn's disease of small intestine without complications (principal); R10.10 Upper abdominal pain, unspecified; R11.2 Nausea with vomiting, unspecified; I11.0 Hypertensive heart disease with heart failure; I50.9 Heart failure, unspecified; I48.91 Unspecified atrial fibrillation; Z94.1 Heart transplant status; Z95.810 Presence of automatic (implantable) cardiac defibrillator; Z79.82 Long term (current) use of aspirin; Z79.4 Long term (current) use of insulin; Z79.899 Other long term (current) drug therapy
CPT/HCPCS: 36415; 80053; 83690; 83735; 85025; 96374; 96375; 99284

== ENCOUNTER 2023-04-15 11:04 | Emergency (ER) | payer MEDICAID ==
--- NOTE | 2023-04-15 11:45 | ED Physician Documentation ---
History of Present Illness - Stated complaint Stated Complaint: ABD PX - Chief complaint Chief Complaint: Abd Pain - History obtained from History obtained from: Patient - Additonal information Additional information: 32-year-old gentleman with history of congenital cardiomyopathy necessitating heart transplant in May 2018 at the [facility]. Today being Thursday he developed abdominal pain and vomiting Thursday night that he related to food. Yesterday was here and saw my partner. He had a CAT scan demonstrating small bowel edema consistent with an ileitis versus an infectious or inflammatory issue. Lab work was relatively unremarkable with hemoglobin of 15.4, mild renal insufficiency with creatinine of 1.3, GFR 79. He took Pepto- Bismol last night and today feels much better albeit not quite back to normal but had a dark tarry stool this morning and called his transcription coordinator at the [place] who recommended he come here for evaluation of that. PD PAST MEDICAL HISTORY - Past Medical History Cardiovascular: Congestive heart failure, Hypertension, Atrial flutter, Atrial fibrillation, Arrhythmia, Other (heart transplant 5 years ago without any problems. ) Respiratory: None Endocrine/Autoimmune: None GI: None : None HEENT: None Musculoskeletal: None Derm: None - Past Surgical History Past Surgical History: Yes Cardiovascular: Pacemaker, AICD, Other - Present Medications Home Medications: Ambulatory Orders Medication Instructions Recorded Confirmed Aspirin EC [Ecotrin] 81 mg PO DAILY 04/14/23 04/15/23 Insulin Lispro [Humalog Kwikpen 5 unit SUBQ TIDWM 04/14/23 04/15/23 U-100] Lisinopril [Zestril] 10 mg PO DAILY 04/14/23 04/15/23 Ondansetron Odt [Zofran] 4 mg TL Q6H PRN #10 tablet 04/14/23 04/15/23 Pravastatin [Pravachol] 10 mg PO DAILY 04/14/23 04/15/23 Sirolimus 0.5 mg PO DAILY 04/14/23 04/15/23 Sirolimus 2 mg PO DAILY 04/14/23 04/15/23 Tacrolimus [Prograf] 0.5 mg ORAL BID 04/14/23 04/15/23 Tacrolimus [Prograf] 5 mg PO BID 04/14/23 04/15/23 allopurinoL [Zyloprim] 100 mg PO DAILY 04/14/23 04/15/23 Liraglutide [Victoza 2-Nelson] 0.6 mg SQ DAILY 04/15/23 04/15/23 - Allergies Allergies/Adverse Reactions: Allergies Allergy/AdvReac Type Severity Reaction Status Date / Time No Known Drug Allergies Allergy Verified 04/15/23 11:09 - Social History Does the pt smoke?: No Smoking Status: Never smoker Does the pt drink ETOH?: No Does the pt have substance abuse?: No - Immunizations Immunizations are current?: Yes - POLST Patient has POLST: No PD ED PE NORMAL - Vitals Vital signs reviewed: Yes - General General: Alert and oriented X 3, No acute distress - Cardiac Cardiac: RRR, No murmur - Respiratory Respiratory: No respiratory distress, Clear bilaterally - Abdomen Abdomen: Other (Slightly hyperactive bowel sounds without tenderness or surgical signs.) - Neuro Neuro: Alert and oriented X 3, Normal speech Results - Vitals Vitals: Vital Signs - 24 hr 04/15/23 04/15/23 04/15/23 11:09 11:13 13:13 Temperature 36.3 C L 36.5 C 36.5 C Heart Rate 96 96 90 Respiratory 18 18 16 Rate Blood Pressure 119/70 119/70 120/72 O2 Saturation 98 98 100 04/15/23 15:00 Temperature 36.5 C Heart Rate 94 Respiratory 16 Rate Blood Pressure 127/80 O2 Saturation 100 Oxygen O2 Source Room air - Labs Labs: Microbiology 04/15/23 13:10 Occult Blood - Final Stool Laboratory Tests 04/14/23 04/15/23 04/15/23 16:15 11:45 11:45 WBC 5.0 RBC 5.11 Hgb 13.2 L Hct 42.1 MCV 82.4 MCH 25.8 L MCHC 31.4 L RDW 13.4 Plt Count 258 MPV 8.9 Neut # (Auto) 2.9 Lymph # (Auto) 1.6 [place] # (Auto) 0.3 Eos # (Auto) 0.1 Baso # (Auto) 0.0 Absolute Nucleated RBC 0.00 Nucleated RBC % 0.0 PT INR Sodium 139 Potassium 4.0 Chloride 104 Carbon Dioxide 29 Anion Gap 6.0 BUN 19 Creatinine 1.4 H Estimated GFR (MDRD) 72 L Glucose 86 Calcium 9.6 Total Bilirubin 0.5 AST 20 ALT 16 Alkaline Phosphatase 43 Total Protein 7.9 Albumin 4.3 Globulin 3.6 Albumin/Globulin Ratio 1.2 Lipase 29 Urine Color Urine Clarity Urine pH Ur Specific [place] Urine Protein Urine Glucose (UA) Urine Ketones Urine Occult Blood Urine Nitrite Urine Bilirubin Urine Urobilinogen Ur Leukocyte Esterase Ur Microscopic Review Urine Culture Comments SARS-CoV-2 (PCR) Blood Type Blood Type Recheck O POSITIVE Antibody Screen 04/15/23 04/15/23 04/15/23 11:45 11:45 12:20 WBC RBC Hgb Hct MCV MCH MCHC RDW Plt Count MPV Neut # (Auto) Lymph # (Auto) [place] # (Auto) Eos # (Auto) Baso # (Auto) Absolute Nucleated RBC Nucleated RBC % PT 13.0 H INR 1.2 Sodium Potassium Chloride Carbon Dioxide Anion Gap BUN Creatinine Estimated GFR (MDRD) Glucose Calcium Total Bilirubin AST ALT Alkaline Phosphatase Total Protein Albumin Globulin Albumin/Globulin Ratio Lipase Urine Color DARK YELLOW Urine Clarity CLEAR Urine pH 5.5 Ur Specific [place] 1.025 Urine Protein TRACE Urine Glucose (UA) NEGATIVE Urine Ketones NEGATIVE Urine Occult Blood NEGATIVE Urine Nitrite NEGATIVE Urine Bilirubin NEGATIVE Urine Urobilinogen 0.2 (NORMAL) Ur Leukocyte Esterase NEGATIVE Ur Microscopic Review NOT INDICATED Urine Culture Comments NOT INDICATED SARS-CoV-2 (PCR) Blood Type O POSITIVE Blood Type Recheck Antibody Screen NEGATIVE 04/15/23 13:15 WBC RBC Hgb Hct MCV MCH MCHC RDW Plt Count MPV Neut # (Auto) Lymph # (Auto) [place] # (Auto) Eos # (Auto) Baso # (Auto) Absolute Nucleated RBC Nucleated RBC % PT INR Sodium Potassium Chloride Carbon Dioxide Anion Gap BUN Creatinine Estimated GFR (MDRD) Glucose Calcium Total Bilirubin AST ALT Alkaline Phosphatase Total Protein Albumin Globulin Albumin/Globulin Ratio Lipase Urine Color Urine Clarity Urine pH Ur Specific [place] Urine Protein Urine Glucose (UA) Urine Ketones Urine Occult Blood Urine Nitrite Urine Bilirubin Urine Urobilinogen Ur Leukocyte Esterase Ur Microscopic Review Urine Culture Comments SARS-CoV-2 (PCR) NOT DETECTED Blood Type Blood Type Recheck Antibody Screen PD Medical Decision Making - ED course ED course: 32-year-old gentleman diagnosed with ileitis yesterday with bowel inflammation now has dark and tarry stools today. He is noted to have a 2 g drop in hemoglobin from 15.4-13.2. INR is normal. CMP showing mild decreased renal function. He is guaiac positive here and we called the [facility] for consultation and likely transfer at 2:09 PM. Preliminarily accepted to the [facility] by Dr. Burks at 4 PM. They are quite full so they will have to review the case with their medical social consultant prior to us initiating transfer. Departure - Departure Disposition: 02 Transfer Acute Care Hosp Clinical Impression: History of heart transplant Gastrointestinal hemorrhage Qualifiers: GI bleed type/associated pathology: unspecified gastrointestinal hemorrhage type Qualified Code(s): K92.2 - Gastrointestinal hemorrhage, unspecified Condition: Stable
[2023-04-15 11:56] LABS: BASOPHILS % (AUTO) 0.2 %; EOSINOPHILS # (AUTO) 0.1 10^3/uL (0.0-0.7); EOSINOPHILS % (AUTO) 2.2 %; HCT - HEMATOCRIT 42.1 % (42.0-52.0); HGB - HEMOGLOBIN 13.2 g/dL (14.0-18.0); LYMPHOCYTES # (AUTO) 1.6 10^3/uL (1.5-3.5); LYMPHOCYTES % (AUTO) 32.7 %; MEAN CORPUSCULAR HEMOGLOBIN 25.8 pg (27.0-31.0); MEAN CORPUSCULAR HGB CONC 31.4 g/dL (32.0-36.0); MEAN CORPUSCULAR VOLUME 82.4 fL (80.0-94.0); MEAN PLATELET VOLUME 8.9 fL (7.4-11.4); MONOCYTES # (AUTO) 0.3 10^3/uL (0.0-1.0); MONOCYTES % (AUTO) 6.6 %; NEUTROPHILS # (AUTO) 2.9 10^3/uL (1.5-6.6); NEUTROPHILS % (AUTO) 58.1 %; PLT - PLATELET COUNT 258 10^3/uL (130-450); RED BLOOD COUNT 5.11 10^6/uL (4.70-6.10); RED CELL DISTRIBUTION WIDTH 13.4 % (12.0-15.0)
[2023-04-15 12:07] LABS: INR 1.2 (0.8-1.2)
[2023-04-15 12:09] LABS: ALBUMIN 4.3 g/dL (3.2-5.5); ALBUMIN/GLOBULIN RATIO 1.2 (1.0-2.2); BILIRUBIN,TOTAL 0.5 mg/dL (0.2-1.0); CALCIUM 9.6 mg/dL (8.5-10.3); CREATININE 1.4 mg/dL (0.6-1.2); TOTAL PROTEIN 7.9 g/dL (6.7-8.2)
[2023-04-15 12:30] LABS: GLUCOSE, URINE (UA) NEGATIVE (NEGATIVE); KETONES,URINE (UA) NEGATIVE (NEGATIVE); LEUKOCYTE ESTERASE, URINE NEGATIVE (NEGATIVE); NITRITE,URINE NEGATIVE (NEGATIVE); OCCULT BLOOD,URINE NEGATIVE (NEGATIVE); PH,URINE 5.5 PH (5.0-7.5); PROTEIN,URINE TRACE mg/dL (NEGATIVE); UROBILINOGEN,URINE 0.2 (NORMAL) E.U./dL (NORMAL)
[2023-04-15 12:36] LABS: BILIRUBIN,URINE NEGATIVE (NEGATIVE); CLARITY,URINE CLEAR (CLEAR); ICTOTEST,URINE NEGATIVE
[2023-04-15] MEDS ORDERED: PANTOPRAZOLE 40 MG VIAL IVP STA (16:02)
[2023-04-15 17:08] VITALS: BP 124/76
== END 2023-04-15 18:00 | disposition short-term general hospital (02) ==
LOC: ED 11:04
DX: K92.2 Gastrointestinal hemorrhage, unspecified (principal); Z94.1 Heart transplant status; Z20.822 Contact with and (suspected) exposure to COVID-19
CPT/HCPCS: 36415; 80053; 81001; 81003; 82272; 83690; 85025; 85610; 86850; 86900; 86901; 87086; 96374; 99284

== ENCOUNTER 2023-04-15 17:38 | Outpatient (CLI) | payer MEDICAID | END 2023-04-15 23:59 | disposition short-term general hospital (02) | LOC: EMS 17:38 | PROVIDERS: ATTEND Emergency Medicine | DX: K92.2 Gastrointestinal hemorrhage, unspecified (principal); R10.9 Unspecified abdominal pain; Z94.1 Heart transplant status | CPT/HCPCS: A0425; A0428 ==

== ENCOUNTER 2023-05-16 09:25 | Emergency (ER) | payer MEDICAID ==
--- NOTE | 2023-05-16 09:39 | ED Physician Documentation ---
PD HPI ABD PAIN - Stated complaint Stated Complaint: ABD PX - Chief complaint Chief Complaint: Abd Pain - History obtained from History obtained from: Patient - History of Present Illness Timing - onset: Last night Timing - duration: Hours (12) Timing - details: Gradual onset, Still present Quality: Cramping, Aching, Pain Location: Epigastric, LUQ Radiation: Upper back Improved by: No: Laying still Worsened by: Eating Associated symptoms: Nausea. No: Fever, Vomiting, Diarrhea, Dysuria Similar symptoms before: Diagnosis (had similar about a month ago with CT showing small bowel segment of wall thickening c/w enteritis. Had GI bleeding the next day and transferred to . Pt states there was seen by GI and watched blood count. No endoscopy. No meds on discharge. No abd pains in the interim until last evening.) Recently seen: Admitted Review of Systems Constitutional: denies: Fever, Chills, Myalgias Nose: denies: Rhinorrhea / runny nose, Congestion Throat: denies: Sore throat Respiratory: denies: Cough GI: reports: Abdominal Pain, Nausea. denies: Abdominal Swelling, Vomiting, Diarrhea Skin: denies: Rash, Lesions PD PAST MEDICAL HISTORY - Past Medical History Cardiovascular: Congestive heart failure, Hypertension, Atrial flutter, Atrial fibrillation, Arrhythmia, Other (heart transplant 5 years ago without any problems. ) Respiratory: None Endocrine/Autoimmune: None GI: None : None HEENT: None Musculoskeletal: None Derm: None - Past Surgical History Past Surgical History: Yes Cardiovascular: Pacemaker, AICD, Other - Present Medications Home Medications: Ambulatory Orders Medication Instructions Recorded Confirmed Aspirin EC [Ecotrin] 81 mg PO DAILY 04/14/23 05/16/23 Insulin Lispro [Humalog Kwikpen 5 unit SUBQ TIDWM 04/14/23 05/16/23 U-100] Lisinopril [Zestril] 10 mg PO DAILY 04/14/23 05/16/23 Ondansetron Odt [Zofran] 4 mg TL Q6H PRN #10 tablet 04/14/23 05/16/23 Pravastatin [Pravachol] 10 mg PO DAILY 04/14/23 05/16/23 Sirolimus 0.5 mg PO DAILY 04/14/23 05/16/23 Sirolimus 2 mg PO DAILY 04/14/23 05/16/23 Tacrolimus [Prograf] 0.5 mg ORAL BID 04/14/23 05/16/23 Tacrolimus [Prograf] 5 mg PO BID 04/14/23 05/16/23 allopurinoL [Zyloprim] 100 mg PO DAILY 04/14/23 05/16/23 Liraglutide [Victoza 2-Nelson] 0.6 mg SQ DAILY 04/15/23 05/16/23 Budesonide [Budesonide EC] 9 mg PO DAILY 10 Days #30 cap 05/16/23 HYDROcod/ACETAM 5/325 [[place] 5/325] 1 ea PO Q6H PRN #15 tablet 05/16/23 Ondansetron Odt [Zofran] 4 mg TL Q6H PRN #10 tablet 05/16/23 - Allergies Allergies/Adverse Reactions: Allergies Allergy/AdvReac Type Severity Reaction Status Date / Time No Known Drug Allergies Allergy Verified 04/15/23 11:09 - Social History Does the pt smoke?: No Smoking Status: Never smoker Does the pt drink ETOH?: No Does the pt have substance abuse?: No - Immunizations Immunizations are current?: Yes - POLST Patient has POLST: No PD ED PE NORMAL - Vitals Vital signs reviewed: Yes - General General: Alert and oriented X 3, Well developed/nourished - HEENT HEENT: Pharynx benign - Neck Neck: Supple, no meningeal sign, No adenopathy - Cardiac Cardiac: RRR, No murmur - Respiratory Respiratory: No respiratory distress, Clear bilaterally - Abdomen Abdomen: Soft, Non distended, No organomegaly, Other (tender with guarding in epigastric to LUQ area. No percussion tenderness. ). No: Normal bowel sounds (decreased) Results - Vitals Vitals: Vital Signs - 24 hr 05/16/23 05/16/23 05/16/23 09:29 11:41 13:00 Temperature 36.8 C Heart Rate 90 74 86 Respiratory 20 19 18 Rate Blood Pressure 125/84 H 129/94 H 135/98 H O2 Saturation 99 98 97 05/16/23 13:47 Temperature Heart Rate 88 Respiratory 18 Rate Blood Pressure 117/89 H O2 Saturation 97 Oxygen O2 Source Room air - Labs Labs: Laboratory Tests 05/16/23 05/16/23 05/16/23 09:48 09:48 09:48 WBC 5.8 RBC 5.25 Hgb 13.8 L Hct 43.3 MCV 82.5 MCH 26.3 L MCHC 31.9 L RDW 13.2 Plt Count 274 MPV 9.3 Neut # (Auto) 3.8 Lymph # (Auto) 1.6 [place] # (Auto) 0.3 Eos # (Auto) 0.1 Baso # (Auto) 0.0 Absolute Nucleated RBC 0.00 Nucleated RBC % 0.0 ESR Sodium 135 Potassium 4.3 Chloride 102 Carbon Dioxide 30 Anion Gap 3.0 L BUN 25 H Creatinine 1.3 Estimated GFR (MDRD) 79 L Glucose 201 H Calcium 10.1 Magnesium 1.6 L Iron 56 TIBC 384 % Saturation 15 L Transferrin 274 Total Bilirubin 0.4 AST 28 ALT 22 Alkaline Phosphatase 63 C-Reactive Protein 1.9 Total Protein 8.3 Albumin 4.8 Globulin 3.5 Albumin/Globulin Ratio 1.4 Lipase 14 Urine Color Urine Clarity Urine pH Ur Specific [place] Urine Protein Urine Glucose (UA) Urine Ketones Urine Occult Blood Urine Nitrite Urine Bilirubin Urine Urobilinogen Ur Leukocyte Esterase Ur Microscopic Review Urine Culture Comments 05/16/23 05/16/23 09:48 12:02 WBC RBC Hgb Hct MCV MCH MCHC RDW Plt Count MPV Neut # (Auto) Lymph # (Auto) [place] # (Auto) Eos # (Auto) Baso # (Auto) Absolute Nucleated RBC Nucleated RBC % ESR 5 Sodium Potassium Chloride Carbon Dioxide Anion Gap BUN Creatinine Estimated GFR (MDRD) Glucose Calcium Magnesium Iron TIBC % Saturation Transferrin Total Bilirubin AST ALT Alkaline Phosphatase C-Reactive Protein Total Protein Albumin Globulin Albumin/Globulin Ratio Lipase Urine Color YELLOW Urine Clarity CLEAR Urine pH 6.5 Ur Specific [place] <=1.005 Urine Protein NEGATIVE Urine Glucose (UA) 100 H Urine Ketones NEGATIVE Urine Occult Blood NEGATIVE Urine Nitrite NEGATIVE Urine Bilirubin NEGATIVE Urine Urobilinogen 0.2 (NORMAL) Ur Leukocyte Esterase NEGATIVE Ur Microscopic Review NOT INDICATED Urine Culture Comments NOT INDICATED - Rads (name of study) abd/pelvic CT Relevant Findings:: Prelim report reviewed (region of small intestinal wall inflammation in ileum similar to prior but different location. ), EMP independent interpretation of test PD Medical Decision Making - ED course Complexity details: reviewed results (CT showing a segment of ileitis different location than prior one. Interestingly his ESR is normal. Hgb is similar to prior one. I did not access database to see how low it might have been there when admitted. ), considered differential (recurrent ileitis/small intestinal focal inflammation. Seems most c/w Crohns. Can treat for that. I don't know if any of his meds would correlate with that - defer to his Heart Transplant specialists and GI. ), d/w patient, d/w alliance consultant (I tried calling his transplant produce team member and left message. ) Departure - Departure Disposition: Home, Self Care Clinical Impression: Ileitis, regional, Abdominal pain, History of heart transplant Condition: Stable Record reviewed to determine appropriate education?: Yes Instructions: ED Inflam Bowel Disease Crohn Prescriptions: Budesonide [Budesonide EC] 9 mg PO DAILY 10 Days #30 cap HYDROcod/ACETAM 5/325 [[place] 5/325] 1 ea PO Q6H PRN #15 tablet PRN Reason: Pain Ondansetron Odt [Zofran] 4 mg TL Q6H PRN #10 tablet PRN Reason: Nausea / Vomiting Comments: Small frequent fluids and bland food for the next several days or so. Try to stay well-hydrated. Continue usual medications. Your CT scan shows another area of localized inflammation through the small intestinal wall in the ileum. It is a different location than the one a month ago but similar in appearance. This would be more suggestive of an inflammatory immune condition such as Crohn's disease. This is commonly treated with a steroid type medicine. We gave you a dose IV here. Initially we can try going with the oral intestinal steroid that does not really have door absorbed into the system. This is the initial recommended approach. This also would reduce side effects systemically. If not improving well, we may need to change to generally absorbed oral steroids. Add ondansetron if needed for nausea and Tylenol every 4-6 hours if needed for pain or hydrocodone if needed for worse pain. Tried contacting the heart transplant team. Jay was not available at this time but I left a message. The nurse Otherwise was to contact an on-call center assistant but have not heard back from them. I do not believe they will have problems with these medications. Follow-up with your heart camp coordinator on Thursday though and they may want you to follow-up with the GI clinic as well for further treatment work-up or options. I sent your prescriptions to [facility] in [place]. Return to the ER if needed for worse symptoms. I am prescribing a short course of narcotic pain medication for you. These are potentially dangerous and addictive medications that should be used carefully. These medications may constipate you. Take an [id number] stool softener such as docusate twice daily with plenty of water while taking these medications. If you go 24 hours without a bowel movement, take [id number]-xerauvd MiraLAX, per package instructions. Do not drink or drive while taking these medications. If you received narcotic or sedating medications while in the emergency department do not drive for 24 hours. Store this medication in a safe, secure place and out of reach of children. It is a violation of federal law to give or sell this medication to another person or to use in a manner other than prescribed. The ED will not refill narcotic prescriptions, including prescriptions lost or stolen. You can dispose of unwanted medications at the [facility]'s office or at several pharmacies such as [facility]. Forms: PCP List Discharge Date/Time: 05/16/23 13:50
[2023-05-16 09:59] LABS: EOSINOPHILS # (AUTO) 0.1 10^3/uL (0.0-0.7); EOSINOPHILS % (AUTO) 0.9 %; HCT - HEMATOCRIT 43.3 % (42.0-52.0); HGB - HEMOGLOBIN 13.8 g/dL (14.0-18.0); LYMPHOCYTES # (AUTO) 1.6 10^3/uL (1.5-3.5); LYMPHOCYTES % (AUTO) 27.8 %; MEAN CORPUSCULAR HEMOGLOBIN 26.3 pg (27.0-31.0); MEAN CORPUSCULAR HGB CONC 31.9 g/dL (32.0-36.0); MEAN CORPUSCULAR VOLUME 82.5 fL (80.0-94.0); MEAN PLATELET VOLUME 9.3 fL (7.4-11.4); MONOCYTES # (AUTO) 0.3 10^3/uL (0.0-1.0); MONOCYTES % (AUTO) 5.2 %; NEUTROPHILS # (AUTO) 3.8 10^3/uL (1.5-6.6); NEUTROPHILS % (AUTO) 65.9 %; PLT - PLATELET COUNT 274 10^3/uL (130-450); RED BLOOD COUNT 5.25 10^6/uL (4.70-6.10); RED CELL DISTRIBUTION WIDTH 13.2 % (12.0-15.0); WHITE BLOOD COUNT 5.8 x10^3/uL (4.8-10.8)
[2023-05-16 10:10] LABS: ALBUMIN 4.8 g/dL (3.2-5.5); ALBUMIN/GLOBULIN RATIO 1.4 (1.0-2.2); BILIRUBIN,TOTAL 0.4 mg/dL (0.2-1.0); CALCIUM 10.1 mg/dL (8.5-10.3); CREATININE 1.3 mg/dL (0.6-1.3); POTASSIUM 4.3 mmol/L (3.5-4.5); TOTAL PROTEIN 8.3 g/dL (6.4-8.9)
[2023-05-16] MEDS ORDERED: FAMOTIDINE 20 MG/2 ML VIAL IVP STA (10:25)
[2023-05-16] MEDS ORDERED: HYDROmorphone 1 MG/ML CARPUJECT IVP STA ×3 (10:25→13:28)
[2023-05-16] MEDS ORDERED: SODIUM CHLORIDE 0.9% 1,000 ML IV STA (10:26)
[2023-05-16 10:54] LABS: CRP - C-REACTIVE PROTEIN 1.9 mg/dL (<0.5); MAGNESIUM 1.6 mg/dL (1.7-2.3)
[2023-05-16] MEDS ORDERED: iohexoL-300 100 ML VIAL IVP ONE (11:28)
[2023-05-16] MEDS ORDERED: DEXAMETHASONE 10 MG/ML VIAL IVP STA (11:46)
[2023-05-16 12:15] LABS: BILIRUBIN,URINE NEGATIVE (NEGATIVE); GLUCOSE, URINE (UA) 100 mg/dL (NEGATIVE); KETONES,URINE (UA) NEGATIVE (NEGATIVE); LEUKOCYTE ESTERASE, URINE NEGATIVE (NEGATIVE); NITRITE,URINE NEGATIVE (NEGATIVE); OCCULT BLOOD,URINE NEGATIVE (NEGATIVE); PH,URINE 6.5 PH (5.0-7.5); PROTEIN,URINE NEGATIVE (NEGATIVE); UROBILINOGEN,URINE 0.2 (NORMAL) E.U./dL (NORMAL)
[2023-05-16 12:19] LABS: CLARITY,URINE CLEAR (CLEAR)
--- NOTE | 2023-05-16 12:29 | CT Report ---
PROCEDURE: ABDOMEN/PELVIS W INDICATIONS: recurrent upper abd pain CONTRAST: 100ml omni 300 TECHNIQUE: After the administration of contrast, 5 mm thick sections acquired from the diaphragms to the symphys is. 5 mm thick coronal and sagittal reformats were acquired. For radiation dose reduction, the foll owing was used: automated exposure control, adjustment of mA and/or kV according to patient size. COMPARISON: 04/14/2023 FINDINGS: Image quality: Excellent. Lung bases and heart: Unremarkable. Liver: No solid mass. Gallbladder and biliary tree: Spleen: No splenomegaly. Pancreas: No pancreatic ductal dilation. Adrenals: No adrenal nodule. Kidneys and ureters: No hydronephrosis. No renal cystic lesion which requires follow up. No solid mas s. Bowel and peritoneum: A long segment loop of small bowel demonstrates wall thickening and mucosal basil ma, new since the prior study on 04/14/2023. No evidence of obstruction. Small amount of diffuse ascite s is unchanged. Lymph nodes: No central or retroperitoneal adenopathy. Vessels: No infrarenal aortic aneurysm. PELVIS Reproductive organs: Unremarkable. Bladder: No abnormal wall thickening, accounting for underdistension. Pelvic lymph nodes: No pelvic adenopathy by size criteria. Bones: No aggressive osseous abnormality. Other: No significant ventral or inguinal hernia. IMPRESSION: Focal ileitis of the central small bowel consistent with infectious or inflammatory bowel disease. Ischemic bowel disease is unlikely given patient age. The appearance is similar to 04/14/2023 , however different segments of the small bowel are involved favoring Crohn's. Reviewed by: Kashmir Clarke on 05/16/2023 12:28 PM PDT Approved by: Kashmir Clarke on 05/16/2023 12:28 PM PDT Station ID: [id number]
[2023-05-16] MEDS ORDERED: KETOROLAC 15 MG/ML VIAL IVP STA (13:29)
[2023-05-16 13:53] VITALS: BP 117/89
== END 2023-05-16 13:50 | disposition home or self-care (01) ==
LOC: ED 09:25
DX: K50.00 Crohn's disease of small intestine without complications (principal); Z94.1 Heart transplant status
CPT/HCPCS: 36415; 74177; 80053; 81003; 83540; 83690; 83735; 84466; 85025; 85651; 86140; 96374; 96375; 96376; 99284; 99285; J1170; Q9967; 81001; 87086

== ENCOUNTER 2023-09-25 09:56 | Outpatient (CLI) | payer MEDICAID ==
[2023-09-25 12:17] LABS: BASOPHILS % (AUTO) 0.2 %; EOSINOPHILS # (AUTO) 0.1 10^3/uL (0.0-0.7); EOSINOPHILS % (AUTO) 1.6 %; HCT - HEMATOCRIT 43.3 % (42.0-52.0); HGB - HEMOGLOBIN 13.2 g/dL (14.0-18.0); LYMPHOCYTES # (AUTO) 2.2 10^3/uL (1.5-3.5); MEAN CORPUSCULAR HGB CONC 30.5 g/dL (32.0-36.0); MEAN CORPUSCULAR VOLUME 81.9 fL (80.0-94.0); MEAN PLATELET VOLUME 9.4 fL (7.4-11.4); MONOCYTES # (AUTO) 0.4 10^3/uL (0.0-1.0); MONOCYTES % (AUTO) 8.4 %; NEUTROPHILS # (AUTO) 1.8 10^3/uL (1.5-6.6); NEUTROPHILS % (AUTO) 40.6 %; PLT - PLATELET COUNT 273 10^3/uL (130-450); RED BLOOD COUNT 5.29 10^6/uL (4.70-6.10); RED CELL DISTRIBUTION WIDTH 13.7 % (12.0-15.0); WHITE BLOOD COUNT 4.4 x10^3/uL (4.8-10.8)
[2023-09-25 12:29] LABS: ALBUMIN 4.6 g/dL (3.2-5.5); ALBUMIN/GLOBULIN RATIO 1.4 (1.0-2.2); BILIRUBIN,TOTAL 0.4 mg/dL (0.2-1.0); CALCIUM 10.3 mg/dL (8.5-10.3); CREATININE 1.2 mg/dL (0.6-1.3); MAGNESIUM 1.5 mg/dL (1.7-2.3); POTASSIUM 4.4 mmol/L (3.5-4.5)
[2023-09-26 09:09] LABS: SIROLIMUS (RAPAMUNE) 3.7 ng/mL (3.0-20.0); TACROLIMUS (FK506) 5.7 ng/mL (2.0-20.0)
== END 2023-09-25 09:57 | disposition home or self-care (01) ==
LOC: LAB.N 09:56
PROVIDERS: ATTEND Internal Medicine Cardiovascular Disease
DX: Z09 Encounter for follow-up examination after completed treatment for conditions other than malignant neoplasm (principal); Z94.1 Heart transplant status
CPT/HCPCS: 36415; 80053; 80195; 80197; 83735; 85025

== ENCOUNTER 2023-12-02 08:00 | Outpatient (CLI) | payer MEDICAID ==
[2023-12-02 17:32] LABS: BILIRUBIN,URINE NEGATIVE (NEGATIVE); EOSINOPHILS # (AUTO) 0.1 10^3/uL (0.0-0.7); EOSINOPHILS % (AUTO) 1.5 %; GLUCOSE, URINE (UA) 100 mg/dL (NEGATIVE); HCT - HEMATOCRIT 39.3 % (42.0-52.0); HGB - HEMOGLOBIN 12.5 g/dL (14.0-18.0); KETONES,URINE (UA) NEGATIVE (NEGATIVE); LEUKOCYTE ESTERASE, URINE NEGATIVE (NEGATIVE); LYMPHOCYTES # (AUTO) 1.8 10^3/uL (1.5-3.5); LYMPHOCYTES % (AUTO) 38.7 %; MEAN CORPUSCULAR HEMOGLOBIN 25.8 pg (27.0-31.0); MEAN CORPUSCULAR HGB CONC 31.8 g/dL (32.0-36.0); MEAN PLATELET VOLUME 9.5 fL (7.4-11.4); MONOCYTES # (AUTO) 0.3 10^3/uL (0.0-1.0); MONOCYTES % (AUTO) 5.6 %; NEUTROPHILS # (AUTO) 2.5 10^3/uL (1.5-6.6); NITRITE,URINE NEGATIVE (NEGATIVE); OCCULT BLOOD,URINE NEGATIVE (NEGATIVE); PH,URINE 6.5 PH (5.0-7.5); PLT - PLATELET COUNT 280 10^3/uL (130-450); PROTEIN,URINE NEGATIVE (NEGATIVE); RED BLOOD COUNT 4.85 10^6/uL (4.70-6.10); RED CELL DISTRIBUTION WIDTH 13.8 % (12.0-15.0); UROBILINOGEN,URINE 1 (NORMAL) E.U./dL (NORMAL); WHITE BLOOD COUNT 4.6 x10^3/uL (4.8-10.8)
[2023-12-02 17:56] LABS: CLARITY,URINE CLEAR (CLEAR)
[2023-12-02 18:07] LABS: ALBUMIN 4.6 g/dL (3.2-5.5); ALBUMIN/GLOBULIN RATIO 1.4 (1.0-2.2); BILIRUBIN,TOTAL 0.3 mg/dL (0.2-1.0); CALCIUM 10.1 mg/dL (8.5-10.3); TOTAL PROTEIN 7.9 g/dL (6.4-8.9)
[2023-12-02 18:09] LABS: BACTERIA,URINE None Seen /HPF (None Seen); RBC,URINE None Seen /HPF (0-5); SQUAMOUS EPITHELIAL CELL,UR RARE Squamous (<= Few); WBC,URINE 0-3 /HPF (0-3)
== END 2023-12-05 23:59 | disposition home or self-care (01) ==
LOC: LAB.N 08:00
PROVIDERS: ATTEND Family Medicine
DX: K52.9 Noninfective gastroenteritis and colitis, unspecified (principal); R10.9 Unspecified abdominal pain
CPT/HCPCS: 36415; 80053; 81001; 82150; 83690; 85025; 87086

== ENCOUNTER 2023-12-03 13:08 | Outpatient (CLI) | payer MEDICAID ==
[2023-12-02 17:32] LABS: BILIRUBIN,URINE NEGATIVE (NEGATIVE); EOSINOPHILS # (AUTO) 0.1 10^3/uL (0.0-0.7); EOSINOPHILS % (AUTO) 1.5 %; GLUCOSE, URINE (UA) 100 mg/dL (NEGATIVE); HCT - HEMATOCRIT 39.3 % (42.0-52.0); HGB - HEMOGLOBIN 12.5 g/dL (14.0-18.0); KETONES,URINE (UA) NEGATIVE (NEGATIVE); LEUKOCYTE ESTERASE, URINE NEGATIVE (NEGATIVE); LYMPHOCYTES # (AUTO) 1.8 10^3/uL (1.5-3.5); LYMPHOCYTES % (AUTO) 38.7 %; MEAN CORPUSCULAR HEMOGLOBIN 25.8 pg (27.0-31.0); MEAN CORPUSCULAR HGB CONC 31.8 g/dL (32.0-36.0); MEAN PLATELET VOLUME 9.5 fL (7.4-11.4); MONOCYTES # (AUTO) 0.3 10^3/uL (0.0-1.0); MONOCYTES % (AUTO) 5.6 %; NEUTROPHILS # (AUTO) 2.5 10^3/uL (1.5-6.6); NITRITE,URINE NEGATIVE (NEGATIVE); OCCULT BLOOD,URINE NEGATIVE (NEGATIVE); PH,URINE 6.5 PH (5.0-7.5); PLT - PLATELET COUNT 280 10^3/uL (130-450); PROTEIN,URINE NEGATIVE (NEGATIVE); RED BLOOD COUNT 4.85 10^6/uL (4.70-6.10); RED CELL DISTRIBUTION WIDTH 13.8 % (12.0-15.0); UROBILINOGEN,URINE 1 (NORMAL) E.U./dL (NORMAL); WHITE BLOOD COUNT 4.6 x10^3/uL (4.8-10.8)
[2023-12-02 17:56] LABS: CLARITY,URINE CLEAR (CLEAR)
[2023-12-02 18:07] LABS: ALBUMIN 4.6 g/dL (3.2-5.5); ALBUMIN/GLOBULIN RATIO 1.4 (1.0-2.2); BILIRUBIN,TOTAL 0.3 mg/dL (0.2-1.0); CALCIUM 10.1 mg/dL (8.5-10.3); TOTAL PROTEIN 7.9 g/dL (6.4-8.9)
[2023-12-02 18:09] LABS: BACTERIA,URINE None Seen /HPF (None Seen); RBC,URINE None Seen /HPF (0-5); SQUAMOUS EPITHELIAL CELL,UR RARE Squamous (<= Few); WBC,URINE 0-3 /HPF (0-3)
[2023-12-03] MEDS ORDERED: DIATRIZOATE MEGLU/DIATRIZO SOD 30 ML BOTTLE PO ONE (13:22)
[2023-12-03] MEDS ORDERED: iohexoL-300 100 ML VIAL ONE (13:22)
--- NOTE | 2023-12-03 14:57 | CT Report ---
PROCEDURE: Abdomen/Pelvis W INDICATIONS: ABDOMINAL PAIN CONTRAST: IV Omnipaque 300 100ml TECHNIQUE: After the administration of intravenous contrast, a CT scan of the abdomen and pelvis was performed. Images were recorded and evaluated at appropriate window settings. Reformats: coronal and sagittal. F or radiation dose reduction, the following was used: automated exposure control, adjustment of mA and /or kV according to patient size. COMPARISON: None. FINDINGS: Image quality: Diagnostic. Lower chest: Unremarkable. Liver: No solid mass. Diffuse fatty infiltration of the liver. Gallbladder and biliary tree: Gallbladder is normal. Spleen: No splenomegaly. Pancreas: No pancreatic ductal dilation. Adrenals: No adrenal nodule. Kidneys and ureters: No hydronephrosis. No renal cystic lesion which requires follow up. No solid mas s. Stomach, bowel and peritoneum: No bowel distension. Few scattered colonic diverticuli without evidenc e of diverticulitis. No pathologic free fluid. Appendix is normal. Lymph nodes: No central or retroperitoneal adenopathy. Vessels: No infrarenal aortic aneurysm. PELVIS Reproductive organs: Unremarkable. Bladder: No abnormal wall thickening, accounting for underdistention. Pelvic lymph nodes: No pelvic adenopathy by size criteria. Bones: No aggressive osseous abnormality. Other: No significant ventral or inguinal hernia. Surgical clips in the right groin. IMPRESSION: No acute disease process. No dilated loops of bowel. No free fluid or air. Hepatic steatosis. Reviewed by: Tammy Foley MD, PhD on 12/03/2023 2:55 PM PST Approved by: Tammy Foley MD, PhD on 12/03/2023 2:55 PM PST Station ID: [id number]
[2023-12-03] MEDS: iohexoL-300 100 ML VIAL IVP ONE (15:37)
[2023-12-03] MEDS: DIATRIZOATE MEGLU/DIATRIZO SOD 30 ML BOTTLE PO ONE (15:37)
== END 2023-12-03 13:09 | disposition home or self-care (01) ==
LOC: DI 13:08
PROVIDERS: ATTEND Family Medicine
DX: R10.9 Unspecified abdominal pain (principal); K52.9 Noninfective gastroenteritis and colitis, unspecified; K76.0 Fatty (change of) liver, not elsewhere classified
CPT/HCPCS: 36415; 74177; 80053; 81001; 82150; 83690; 85025; Q9963; Q9967; 87086

== ENCOUNTER 2024-05-11 09:51 | Outpatient (CLI) | payer MEDICAID | END 2024-05-11 09:52 | disposition home or self-care (01) | LOC: LAB 09:51 | PROVIDERS: ATTEND Physician Assistant Medical | DX: Z09 Encounter for follow-up examination after completed treatment for conditions other than malignant neoplasm (principal); Z94.1 Heart transplant status ==

== ENCOUNTER 2024-05-11 09:57 | Outpatient (CLI) | payer MEDICAID ==
[2024-05-11 12:53] LABS: CHOL/HDL RATIO 4.6 (<5.0); CHOLESTEROL 157 mg/dL; HDL CHOLESTEROL 34 mg/dL; LDL CHOLESTEROL,CALCULATED 103 mg/dL; TRIGLYCERIDES 98 mg/dL; VLDL CHOLESTEROL 20 mg/dL
[2024-05-11 13:07] LABS: ESTIMATED AVERAGE GLUCOSE 169 mg/dL (70-100); HEMOGLOBIN A1c% 7.5 % (4.27-6.07)
[2024-05-11 13:19] LABS: CREATININE,URINE 423.2 mg/dL
== END 2024-05-11 09:58 | disposition home or self-care (01) ==
LOC: LAB.N 09:57
PROVIDERS: ATTEND Nurse Practitioner
DX: E13.9 Other specified diabetes mellitus without complications (principal)
CPT/HCPCS: 36415; 80061; 82043; 82570; 83036; 83721; 84443

== ENCOUNTER 2024-05-29 22:00 | Emergency (ER) | payer MEDICAID ==
[2024-05-29 22:09] VITALS: BP 129/74; O2SAT 100
--- NOTE | 2024-05-29 22:40 | ED Physician Documentation ---
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 He has a history of recurrent attacks of epigastric pain of unclear etiology. They happen every few months or so. He has a pending referral to GI for this but has not happened yet. States there is really no pattern or triggers that he can notice to the pain. No radiation to it. This is his fourth visit or so in the last year or so to the emergency department for same with negative workups including blood work and CTs on prior visits. PD PAST MEDICAL HISTORY - Past Medical History Past Medical History: Yes Cardiovascular: Congestive heart failure, Hypertension, Atrial flutter, Atrial fibrillation, Arrhythmia, Other Respiratory: None Endocrine/Autoimmune: None GI: None : None HEENT: None Musculoskeletal: None Derm: None - Past Surgical History Past Surgical History: Yes Cardiovascular: Pacemaker, AICD, Other - Present Medications Home Medications: Ambulatory Orders Medication Instructions Recorded Confirmed Aspirin EC [Ecotrin] 81 mg PO DAILY 04/14/23 05/29/24 Insulin Lispro [Humalog Kwikpen 5 unit SUBQ TIDWM 04/14/23 05/29/24 U-100] Lisinopril [Zestril] 10 mg PO DAILY 04/14/23 05/29/24 Ondansetron Odt [Zofran] 4 mg TL Q6H PRN #10 tablet 04/14/23 05/29/24 Pravastatin [Pravachol] 10 mg PO DAILY 04/14/23 05/29/24 Sirolimus 0.5 mg PO DAILY 04/14/23 05/29/24 Sirolimus 2 mg PO DAILY 04/14/23 05/29/24 Tacrolimus [Prograf] 0.5 mg ORAL BID 04/14/23 05/29/24 Tacrolimus [Prograf] 5 mg PO BID 04/14/23 05/29/24 allopurinoL [Zyloprim] 100 mg PO DAILY 04/14/23 05/29/24 Liraglutide [Victoza 2-Nelson] 0.6 mg SQ DAILY 04/15/23 05/29/24 Budesonide [Budesonide EC] 9 mg PO DAILY 10 Days #30 cap 05/16/23 05/29/24 HYDROcod/ACETAM 5/325 [[place] 5/325] 1 ea PO Q6H PRN #15 tablet 05/16/23 05/29/24 Ondansetron Odt [Zofran] 4 mg TL Q6H PRN #10 tablet 05/16/23 05/29/24 HYDROcod/ACETAM 5/325 [[place] 5/325] 1 - 2 ea PO Q6H PRN #14 tablet 08/11/23 05/29/24 Promethazine [Phenergan] 25 mg PO Q6H PRN #10 tab 08/11/23 05/29/24 Omeprazole 40 mg PO DAILY #30 cap 05/29/24 - Allergies Allergies/Adverse Reactions: Allergies Allergy/AdvReac Type Severity Reaction Status Date / Time No Known Drug Allergies Allergy Verified 05/29/24 22:03 - Social History Does the pt smoke?: No Smoking Status: Never smoker Does the pt drink ETOH?: No Does the pt have substance abuse?: No - Immunizations Immunizations are current?: Yes - POLST Patient has POLST: No PD ED PE NORMAL - Vitals Vital signs reviewed: Yes - General General: Alert and oriented X 3, No acute distress - Abdomen Abdomen: Normal bowel sounds, Soft, Non tender - Neuro Neuro: Alert and oriented X 3 Eye Opening: Spontaneous Motor: Obeys Commands Verbal: Oriented GCS Score: 15 - Psych Psych: Normal mood, Normal affect Results - Vitals Vitals: Vital Signs - 24 hr 05/29/24 22:03 Temperature 36.8 C Heart Rate 100 Respiratory 16 Rate Blood Pressure 129/74 O2 Saturation 100 Oxygen O2 Source Room air - Labs Labs: Laboratory Tests 05/29/24 05/29/24 05/29/24 22:20 22:31 22:31 WBC 7.5 RBC 5.80 Hgb 14.7 Hct 46.3 MCV 79.8 L MCH 25.3 L MCHC 31.7 L RDW 14.2 Plt Count 322 MPV 8.8 Neut # (Auto) 5.2 Lymph # (Auto) 1.8 Lea # (Auto) 0.4 Eos # (Auto) 0.1 Baso # (Auto) 0.0 Absolute Nucleated RBC 0.00 Nucleated RBC % 0.0 Sodium 139 Potassium 3.9 Chloride 102 Carbon Dioxide 29 Anion Gap 8.0 BUN 14 Creatinine 1.2 Estimated GFR (MDRD) 86 L Glucose 136 H Calcium 10.3 Total Bilirubin 0.5 AST 23 ALT 23 Alkaline Phosphatase 63 Total Protein 8.6 Albumin 4.7 Globulin 3.9 Albumin/Globulin Ratio 1.2 Lipase 12 Urine Color YELLOW Urine Clarity CLEAR Urine pH 5.5 Ur Specific Mathias >=1.030 H Urine Protein TRACE Urine Glucose (UA) NEGATIVE Urine Ketones TRACE Urine Occult Blood NEGATIVE Urine Nitrite NEGATIVE Urine Bilirubin SMALL H Urine Urobilinogen 0.2 (NORMAL) Ur Leukocyte Esterase NEGATIVE Ur Microscopic Review NOT INDICATED Urine Culture Comments NOT INDICATED PD Medical Decision Making - ED course ED course: 33-year-old gentleman with recurrent epigastric pain of unclear etiology. Could be gastritis or gastroparesis. He is treated with morphine, pantoprazole, and Reglan here pending labs. On reevaluation after Reglan, morphine, and Protonix he felt much better and his pain is resolved. He was wanting to go home. Lab work including CBC, CMP, and urinalysis were normal/unremarkable. Departure - Departure Disposition: 01 Home, Self Care Clinical Impression: Epigastric abdominal pain, Heart transplant recipient Condition: Good Record reviewed to determine appropriate education?: Yes Instructions: ED Abdominal Pain Unkn Cause Male Prescriptions: Omeprazole 40 mg PO DAILY #30 cap Comments: Continue your efforts to try to follow-up with the gastroenterology team at the [facility] to whom you have been referred. Call your doctor to arrange a follow-up appointment, make the next available appointment. In the interim, return anytime if worse or if new symptoms develop. Forms: PCP List
[2024-05-29] MEDS: MORPHINE 10 MG/ML VIAL IVP STA (22:46)
[2024-05-29] MEDS: METOCLOPRAMIDE 10 MG/2 ML VIAL IVP STA (22:47)
[2024-05-29] MEDS: PANTOPRAZOLE 40 MG VIAL IVP STA (22:49)
[2024-05-29 22:50] LABS: BILIRUBIN,URINE SMALL (NEGATIVE); CLARITY,URINE CLEAR (CLEAR); GLUCOSE, URINE (UA) NEGATIVE (NEGATIVE); KETONES,URINE (UA) TRACE mg/dL (NEGATIVE); LEUKOCYTE ESTERASE, URINE NEGATIVE (NEGATIVE); NITRITE,URINE NEGATIVE (NEGATIVE); OCCULT BLOOD,URINE NEGATIVE (NEGATIVE); PH,URINE 5.5 PH (5.0-7.5); PROTEIN,URINE TRACE mg/dL (NEGATIVE); UROBILINOGEN,URINE 0.2 (NORMAL) E.U./dL (NORMAL)
[2024-05-29 22:52] LABS: BASOPHILS % (AUTO) 0.1 %; EOSINOPHILS # (AUTO) 0.1 10^3/uL (0.0-0.7); EOSINOPHILS % (AUTO) 0.9 %; HCT - HEMATOCRIT 46.3 % (42.0-52.0); HGB - HEMOGLOBIN 14.7 g/dL (14.0-18.0); LYMPHOCYTES # (AUTO) 1.8 10^3/uL (1.5-3.5); LYMPHOCYTES % (AUTO) 23.6 %; MEAN CORPUSCULAR HEMOGLOBIN 25.3 pg (27.0-31.0); MEAN CORPUSCULAR HGB CONC 31.7 g/dL (32.0-36.0); MEAN CORPUSCULAR VOLUME 79.8 fL (80.0-94.0); MEAN PLATELET VOLUME 8.8 fL (7.4-11.4); MONOCYTES # (AUTO) 0.4 10^3/uL (0.0-1.0); MONOCYTES % (AUTO) 5.4 %; NEUTROPHILS # (AUTO) 5.2 10^3/uL (1.5-6.6); NEUTROPHILS % (AUTO) 69.6 %; PLT - PLATELET COUNT 322 10^3/uL (130-450); RED CELL DISTRIBUTION WIDTH 14.2 % (12.0-15.0); WHITE BLOOD COUNT 7.5 x10^3/uL (4.8-10.8)
[2024-05-29 23:03] LABS: ALBUMIN 4.7 g/dL (3.2-5.5); ALBUMIN/GLOBULIN RATIO 1.2 (1.0-2.2); BILIRUBIN,TOTAL 0.5 mg/dL (0.2-1.0); CALCIUM 10.3 mg/dL (8.5-10.3); CREATININE 1.2 mg/dL (0.6-1.3); POTASSIUM 3.9 mmol/L (3.5-4.5); TOTAL PROTEIN 8.6 g/dL (6.4-8.9)
== END 2024-05-29 23:21 | disposition home or self-care (01) ==
LOC: ED 22:00
DX: R10.13 Epigastric pain (principal); Z94.1 Heart transplant status; I42.4 Endocardial fibroelastosis; I11.0 Hypertensive heart disease with heart failure; I50.9 Heart failure, unspecified; I48.91 Unspecified atrial fibrillation; Z95.810 Presence of automatic (implantable) cardiac defibrillator; Z79.82 Long term (current) use of aspirin; Z79.4 Long term (current) use of insulin; Z79.899 Other long term (current) drug therapy
CPT/HCPCS: 36415; 80053; 81003; 83690; 85025; 96374; 96375; 99283; 99284; J2765; 81001; 87086

== ENCOUNTER 2024-05-31 19:04 | Emergency (ER) | payer MEDICAID ==
--- NOTE | 2024-05-31 19:21 | ED Physician Documentation ---
PD HPI ABD PAIN - Stated complaint Stated Complaint: ABD PX - Chief complaint Chief Complaint: Abd Pain - History obtained from History obtained from: Patient - History of Present Illness Timing - onset: Chronic Location: Epigastric Associated symptoms: No: Fever, Nausea, Vomiting, Hematemesis, Diarrhea, Constipation, Melena, Hematochezia, Dysuria - Additional information Additional information: Patient is a 33-year-old male who has a history of a cardiac transplant secondary to congenital cardiomyopathy. He states that since that time he has had intermittent epigastric abdominal pain. Has been worked up multiple times for same. Negative CT scans. Negative laboratory testing. [facility] but does not have an appointment yet. Saw his PCP this morning, had no symptoms this morning but pain returned tonight, therefore he came back to the emergency department. No nausea or vomiting. He is diabetic as well. Does not take NSAIDs. Does not drink alcohol or smoke. Nothing seems to make it better or worse. He states it feels like a cramping in his epigastric area. Review of Systems Constitutional: denies: Fever, Chills GI: denies: Vomiting, Diarrhea Skin: denies: Rash Musculoskeletal: denies: Neck pain, Back pain Neurologic: denies: Headache PD PAST MEDICAL HISTORY - Past Medical History Cardiovascular: Congestive heart failure, Hypertension, Atrial flutter, Atrial fibrillation, Arrhythmia, Other Respiratory: None Endocrine/Autoimmune: None GI: None : None HEENT: None Musculoskeletal: None Derm: None - Past Surgical History Past Surgical History: Yes Cardiovascular: Pacemaker, AICD, Other - Present Medications Home Medications: Ambulatory Orders Medication Instructions Recorded Confirmed Aspirin EC [Ecotrin] 81 mg PO DAILY 04/14/23 05/29/24 Insulin Lispro [Humalog Kwikpen 5 unit SUBQ TIDWM 04/14/23 05/29/24 U-100] Lisinopril [Zestril] 10 mg PO DAILY 04/14/23 05/29/24 Ondansetron Odt [Zofran] 4 mg TL Q6H PRN #10 tablet 04/14/23 05/29/24 Pravastatin [Pravachol] 10 mg PO DAILY 04/14/23 05/29/24 Sirolimus 0.5 mg PO DAILY 04/14/23 05/29/24 Sirolimus 2 mg PO DAILY 04/14/23 05/29/24 Tacrolimus [Prograf] 0.5 mg ORAL BID 04/14/23 05/29/24 Tacrolimus [Prograf] 5 mg PO BID 04/14/23 05/29/24 allopurinoL [Zyloprim] 100 mg PO DAILY 04/14/23 05/29/24 Liraglutide [Victoza 2-Nelson] 0.6 mg SQ DAILY 04/15/23 05/29/24 Budesonide [Budesonide EC] 9 mg PO DAILY 10 Days #30 cap 05/16/23 05/29/24 HYDROcod/ACETAM 5/325 [[place] 5/325] 1 ea PO Q6H PRN #15 tablet 05/16/23 05/29/24 Ondansetron Odt [Zofran] 4 mg TL Q6H PRN #10 tablet 05/16/23 05/29/24 HYDROcod/ACETAM 5/325 [[place] 5/325] 1 - 2 ea PO Q6H PRN #14 tablet 08/11/23 05/29/24 Promethazine [Phenergan] 25 mg PO Q6H PRN #10 tab 08/11/23 05/29/24 Omeprazole 40 mg PO DAILY #30 cap 05/29/24 Dicyclomine [Bentyl] 10 mg PO QID PRN #30 cap 05/31/24 HYDROcod/ACETAM 5/325 [[place] 5/325] 1 - 2 ea PO Q6H PRN #14 tablet 05/31/24 Metoclopramide [Reglan] 10 mg PO Q6H PRN #20 tablet 05/31/24 - Allergies Allergies/Adverse Reactions: Allergies Allergy/AdvReac Type Severity Reaction Status Date / Time No Known Drug Allergies Allergy Verified 05/31/24 19:06 - Social History Does the pt smoke?: No Smoking Status: Never smoker Does the pt drink ETOH?: No Does the pt have substance abuse?: No - Immunizations Immunizations are current?: Yes - POLST Patient has POLST: No PD ED PE NORMAL - Vitals Vital signs reviewed: Yes - General General: Alert and oriented X 3, No acute distress - HEENT HEENT: Moist mucous membranes - Neck Neck: Supple, no meningeal sign, No bony TTP - Cardiac Cardiac: RRR, Strong equal pulses - Respiratory Respiratory: No respiratory distress, Clear bilaterally - Abdomen Abdomen: Soft, Non tender, Non distended - Derm Derm: Warm and dry - Neuro Neuro: Alert and oriented X 3 - Psych Psych: Normal mood, Normal affect Results - Vitals Vitals: Vital Signs - 24 hr 05/31/24 05/31/24 05/31/24 19:06 19:21 19:39 Temperature 36.8 C Heart Rate 98 98 90 Respiratory 16 18 Rate Blood Pressure 140/90 H 138/88 H O2 Saturation 99 98 05/31/24 20:09 Temperature Heart Rate 88 Respiratory 18 Rate Blood Pressure 138/81 H O2 Saturation 95 Oxygen O2 Source Room air PD Medical Decision Making - ED course Complexity details: reviewed results, re-evaluated patient, considered differential, d/w patient ED course: Patient with his usual epigastric abdominal pain. Abnormal laboratory testing 2 days ago. Has had negative CT scans in the past. Has not had an endoscopy, gastric emptying study or small bowel follow-through. He is [facility] He was given his usual doses of morphine, Reglan and Protonix. Symptoms resolved. Patient is well-appearing, nontoxic. No indication to repeat imaging at this time. As he does seem to appear improved with Reglan, we will trial him on this for home. Also would help if he does have gastroparesis. We will trial him on Bentyl as well. No evidence of emergency medical condition. Patient counseled regarding signs and symptoms for which I believe and urgent re-evaluation would be necessary. Patient with good understanding of and agreement to plan and is comfortable estelle g home at this time This document was made in part using voice recognition software. While efforts are made to proofread this document, sound alike and grammatical errors may occur. Departure - Departure Disposition: Home, Self Care Clinical Impression: Epigastric abdominal pain Condition: Good Instructions: ED Abdominal Pain Unkn Cause Male Follow-Up: Ashley Nunes ARNP [Primary Care Provider] - Prescriptions: Dicyclomine [Bentyl] 10 mg PO QID PRN #30 cap PRN Reason: Abdominal Pain HYDROcod/ACETAM 5/325 [[place] 5/325] 1 - 2 ea PO Q6H PRN #14 tablet PRN Reason: Pain Metoclopramide [Reglan] 10 mg PO Q6H PRN #20 tablet PRN Reason: Nausea / Vomiting Comments: Please follow-up with your doctor for further care. As Reglan seems to work well for you we will trial you on this at home, do not take this with Phenergan. Will also trial you on Bentyl which can help with any pain you are having. We have written you a small amount of pain medication for breakthrough pain. Your prescriptions were sent to [facility] in [place]. As we discussed it is possible that you have gastroparesis which causes delayed emptying of your stomach which could be causing your recurrent pain. Your doctor may want to order a emptying study. I am prescribing a short course of narcotic pain medication for you. These are potentially dangerous and addictive medications that should be used carefully. These medications may constipate you. Take an [id number] stool softener (docusate) twice daily with plenty of water while taking these medications. If you go 24 hours without a bowel movement, take [id number] miralax, per package instructions. Do not drink or drive while taking these medications. If you received narcotic or sedating medications while in the emergency department, do not drive for 24 hours. Store this medication in a safe, secure place and out of reach of children. It is a violation of federal law to give or sell this medication to another person or to use in a manner other than prescribed. The ED will not refill narcotic prescriptions, including prescriptions lost or stolen. To dispose of unwanted medications: 1. [facility] at [address] in [place] has a medication drop box. They accept prescription medications (in pill form) Thursday through Thursday 9:00 a.m. to 5:00 p.m. 2. The [facility] [employer] accepts prescription medications (in pill form only) for disposal year round. Call for more information. 3. Contact the [facility] for the next [facility] sponsored prescription drug collection event. , [phone], or [phone]; Forms: PCP List Discharge Date/Time: 05/31/24 20:37
[2024-05-31] MEDS: MORPHINE 10 MG/ML VIAL IVP STA (19:40)
[2024-05-31] MEDS: PANTOPRAZOLE 40 MG VIAL IVP STA (19:40)
[2024-05-31] MEDS: METOCLOPRAMIDE 10 MG/2 ML VIAL IVP STA (19:41)
[2024-05-31] MEDS: DICYCLOMINE 10 MG CAPSULE PO STA (20:22)
[2024-05-31] MEDS: MORPHINE 2 MG/ML CARPUJECT IVP STA (20:22)
[2024-05-31 20:31] VITALS: BP 138/81; O2SAT 95
== END 2024-05-31 20:37 | disposition home or self-care (01) ==
LOC: ED 19:04
DX: R10.13 Epigastric pain (principal); I11.0 Hypertensive heart disease with heart failure; I50.9 Heart failure, unspecified; E11.9 Type 2 diabetes mellitus without complications; I48.91 Unspecified atrial fibrillation; I48.92 Unspecified atrial flutter; Z94.1 Heart transplant status; Z95.810 Presence of automatic (implantable) cardiac defibrillator; Z79.82 Long term (current) use of aspirin; Z79.4 Long term (current) use of insulin; Z79.899 Other long term (current) drug therapy
CPT/HCPCS: 96374; 96375; 96376; 99283; A9270; J2765

== ENCOUNTER 2024-06-24 09:22 | Outpatient (CLI) | payer MEDICAID ==
[2024-06-24 12:25] LABS: BASOPHILS % (AUTO) 0.2 %; EOSINOPHILS # (AUTO) 0.1 10^3/uL (0.0-0.7); EOSINOPHILS % (AUTO) 1.3 %; HCT - HEMATOCRIT 41.7 % (42.0-52.0); HGB - HEMOGLOBIN 13.3 g/dL (14.0-18.0); LYMPHOCYTES # (AUTO) 1.8 10^3/uL (1.5-3.5); LYMPHOCYTES % (AUTO) 39.5 %; MEAN CORPUSCULAR HEMOGLOBIN 25.5 pg (27.0-31.0); MEAN CORPUSCULAR HGB CONC 31.9 g/dL (32.0-36.0); MEAN PLATELET VOLUME 9.7 fL (7.4-11.4); MONOCYTES # (AUTO) 0.4 10^3/uL (0.0-1.0); MONOCYTES % (AUTO) 8.3 %; NEUTROPHILS # (AUTO) 2.3 10^3/uL (1.5-6.6); NEUTROPHILS % (AUTO) 50.5 %; PLT - PLATELET COUNT 266 10^3/uL (130-450); RED BLOOD COUNT 5.21 10^6/uL (4.70-6.10); RED CELL DISTRIBUTION WIDTH 13.9 % (12.0-15.0); WHITE BLOOD COUNT 4.5 x10^3/uL (4.8-10.8)
[2024-06-24 12:40] LABS: ALBUMIN 4.8 g/dL (3.2-5.5); ALBUMIN/GLOBULIN RATIO 1.5 (1.0-2.2); BILIRUBIN,TOTAL 0.4 mg/dL (0.2-1.0); MAGNESIUM 1.3 mg/dL (1.7-2.3); POTASSIUM 4.1 mmol/L (3.5-4.5); TOTAL PROTEIN 7.9 g/dL (6.4-8.9)
[2024-06-25 08:19] LABS: SIROLIMUS (RAPAMUNE) 3.3 ng/mL (3.0-20.0); TACROLIMUS (FK506) 5.3 ng/mL (2.0-20.0)
== END 2024-06-24 09:23 | disposition home or self-care (01) ==
LOC: LAB.N 09:22
PROVIDERS: ATTEND Internal Medicine Cardiovascular Disease
DX: Z09 Encounter for follow-up examination after completed treatment for conditions other than malignant neoplasm (principal); Z94.1 Heart transplant status
CPT/HCPCS: 36415; 80053; 80195; 80197; 83735; 85025